=== PATIENT | female | born 1995 | race Caucasian/White ===

== ENCOUNTER 2018-07-30 18:44 | Emergency (ER) | payer OTHER ==
[2018-07-30 19:29] VITALS: BP 142/81; PULSE 77; TEMP 98.3; BMI 29.8
--- NOTE | 2018-07-30 19:30 | PDOC ---
Rapid Medical Evaluation Chief Complaint: Wound Time Seen by Provider: 07/30/18 19:26 Medical Evaluation: Allergies Allergy/AdvReac Type Severity Reaction Status Date / Time No Known Allergies Allergy Verified 03/09/14 20:12 07/30/18 19:26 Patient c/o: right leg bump since this am, no fever, had varicella vaccine Patient on brief exam: noted cluster of small vesicles to lower inner thigh Patient ordered for: none The patient will proceed to the ED Discharge Disposition - Diagnosis Rash - Referrals - Patient Instructions - Post Discharge Activity
--- NOTE | 2018-07-30 19:55 | PDOC ---
History of Present Illness - General Chief Complaint: Wound Stated Complaint: Abscess Boil ON RIGHT LEG Time Seen by Provider: 07/30/18 19:26 - History of Present Illness Initial Comments: 07/30/18 19:52 23-year-old female without comorbidities presents for evaluation of a painful area on the right inner thigh times one day no systemic symptoms Past History - Past Medical History Allergies/Adverse Reactions: Allergies Allergy/AdvReac Type Severity Reaction Status Date / Time No Known Allergies Allergy Verified 03/09/14 20:12 Home Medications: Ambulatory Orders No Home Medications 0 dose .ROUTE UTDICT 03/09/14 Asthma: Yes (ASTHMA) - Immunization History Immunization Up to Date: Yes - Suicide/Smoking/Psychosocial Hx Smoking Status: No Smoking History: Never smoked Have you smoked in the past 12 months: No Number of Cigarettes Smoked Daily: 0 Information on smoking cessation initiated: No Hx Alcohol Use: No Drug/Substance Use Hx: No Substance Use Type: None Review of Systems - Review of Systems Integumentary: Yes: Rash *Physical Exam - Vital Signs Last Vital Signs Temp Pulse Resp BP Pulse Ox 98.3 F 77 16 142/81 100 07/30/18 19:25 07/30/18 19:25 07/30/18 19:25 07/30/18 19:25 07/30/18 19:25 - Physical Exam Comments: 07/30/18 19:53 HEAD: NC/AT EYES: Conjuntiva clear NEUROLOGIC: No gross sensory or motor deficits, NVID SKIN: Normal color and temperature there is a vesicular area with closed vesicles about 2 cm circumferential on the right inner thigh Moderate Sedation - Procedure Monitoring Vital Signs: Procedure Monitoring Vital Signs Temperature 98.3 F 07/30/18 19:25 Pulse Rate 77 07/30/18 19:25 Respiratory Rate 16 07/30/18 19:25 Blood Pressure 142/81 07/30/18 19:25 O2 Sat by Pulse Oximetry (%) 100 07/30/18 19:25 *DC/Admit/Observation/Transfer Diagnosis at time of Disposition: Rash, Herpetic venancio - Discharge Dispostion Disposition: HOME Condition at time of disposition: Stable Decision to Admit order: No - Referrals Referrals: Kylah Hernandez [Primary Care Provider] - - Patient Instructions Additional Instructions: He may take Tylenol and Motrin as directed for pain. Topical Abreva cream 3 times a day will help the area. Please wash the area with soap and water and leave it open to air otherwise. Return to the emergency room should symptoms worsen or go unresolved and follow-up with your primary care physician one to 2 days for further evaluation and treatment options - Post Discharge Activity
== END 2018-07-30 19:57 | disposition home or self-care (01) ==
LOC: JERFT 18:44
DX: B00.89 Other herpesviral infection (principal); Z87.09 Personal history of other diseases of the respiratory system
CPT/HCPCS: 99281-25

== ENCOUNTER 2018-09-04 13:33 | Inpatient (IN) | payer OTHER ==
[2018-09-04] MEDS ORDERED: SODIUM CHLORIDE 1,000 ML IV STA (14:22)
[2018-09-04] MEDS ORDERED: KETOROLAC TROMETHAMINE 30 MG/1 ML VIAL IVPUSH ONE (14:22)
[2018-09-04] MEDS ORDERED: TAMSULOSIN HCL 0.4 MG CAP PO ONE (14:41)
[2018-09-04] MEDS ORDERED: METOCLOPRAMIDE HCL INJECTION 10 MG/2 ML VIAL IVPB ONE (14:41)
[2018-09-04 14:44] LABS: BASO % 0.5 % (0-2.0); EOS % 0.8 % (0-4.5); HEMATOCRIT 36.7 % (32.4-45.2); HEMOGLOBIN 11.6 GM/dL (10.7-15.3); LYMPH % 8.6 % (8-40); MCH 29.1 pg (25.7-33.7); MCHC 31.7 g/dl (32.0-36.0); MEAN PLT VOLUME 9.8 fl (7.5-11.1); MONO % 3.7 % (3.8-10.2); NEUT % 86.4 % (42.8-82.8); PLATELET COUNT 354 K/MM3 (134-434); RBC 3.99 M/mm3 (3.60-5.2); RDW 13.5 % (11.6-15.6); WHITE BLOOD COUNT 13.7 K/mm3 (4.0-10.0)
[2018-09-04 15:22] LABS: ALBUMIN 4.1 g/dl (3.4-5.0); ALK PHOS 73 U/L (45-117); ANION GAP 7 MMOL/L (8-16); BILIRUBIN,TOTAL 0.3 mg/dL (0.2-1); BLOOD UREA NITROGEN 11 mg/dL (7-18); CALCIUM 9.2 mg/dL (8.5-10.1); CHLORIDE 104 mmol/L (98-107); CO2 26 mmol/L (21-32); GLUCOSE,RANDOM 120 mg/dL (74-106); SGOT/AST 24 U/L (15-37); SGPT/ALT 23 U/L (13-61); SODIUM 137 mmol/L (136-145); TOT PROT 8.4 g/dl (6.4-8.2)
[2018-09-04 16:59] LABS: URINE APPEARANCE CLEAR; URINE BILIRUBIN NEGATIVE (<2.0 mg/dL); URINE COLOR LTYELLOW; URINE GLUCOSE (UA) NEGATIVE (NEGATIVE); URINE KETONE NEGATIVE (NEGATIVE); URINE LEUK ESTERASE NEGATIVE (NEGATIVE); URINE NITRITE NEGATIVE (NEGATIVE); URINE PROTEIN NEGATIVE (NEGATIVE); URINE UROBILINOGEN NEGATIVE mg/dL (0.2-1.0)
[2018-09-04 17:00] LABS: HCG,QUALITATIVE URINE Negative
[2018-09-04 17:11] LABS: EPI CELLS FEW /HPF (FEW); URINE MUCUS RARE
--- NOTE | 2018-09-04 17:18 | PDOC ---
History of Present Illness - General Chief Complaint: Pain, Acute Stated Complaint: PAIN Time Seen by Provider: 09/04/18 14:20 History Source: Patient - History of Present Illness Timing/Duration: reports: constant Quality: reports: severe Past History - Past Medical History Allergies/Adverse Reactions: Allergies Allergy/AdvReac Type Severity Reaction Status Date / Time No Known Allergies Allergy Verified 03/09/14 20:12 Home Medications: Ambulatory Orders No Home Medications 0 dose .ROUTE UTDICT 03/09/14 Asthma: Yes (ASTHMA) COPD: No - Immunization History Immunization Up to Date: Yes - Suicide/Smoking/Psychosocial Hx Smoking Status: No Smoking History: Never smoked Have you smoked in the past 12 months: No Number of Cigarettes Smoked Daily: 0 Information on smoking cessation initiated: No Hx Alcohol Use: No Drug/Substance Use Hx: No Substance Use Type: None Review of Systems - Review of Systems Constitutional: No: Chills, Fever ABD/GI: Yes: Nausea, Vomiting : Yes: Flank Pain. No: Burning, Dysuria, Discharge, Hematuria *Physical Exam - Vital Signs Last Vital Signs Temp Pulse Resp BP Pulse Ox 97.9 F 104 H 18 121/62 99 09/04/18 16:29 09/04/18 16:29 09/04/18 16:29 09/04/18 16:29 09/04/18 16:29 - Physical Exam General Appearance: Yes: Appropriately Dressed, Severe Distress HEENT: positive: Normal Voice Neck: positive: Supple Gastrointestinal/Abdominal: positive: Tender (to R flank), Soft Musculoskeletal: positive: Normal Inspection. negative: CVA Tenderness Integumentary: positive: Dry, Warm Neurologic: positive: Fully Oriented, Alert, Normal Mood/Affect Moderate Sedation - Procedure Monitoring Vital Signs: Procedure Monitoring Vital Signs Temperature 97.9 F 09/04/18 16:29 Pulse Rate 104 H 09/04/18 16:29 Respiratory Rate 18 09/04/18 16:29 Blood Pressure 121/62 09/04/18 16:29 O2 Sat by Pulse Oximetry (%) 99 09/04/18 16:29 ED Treatment Course - LABORATORY CBC & Chemistry Diagram: 09/04/18 14:20 09/04/18 14:20 - ADDITIONAL ORDERS Additional order review: Laboratory Results 09/04/18 09/04/18 09/04/18 16:00 14:25 14:20 Sodium 137 Potassium 4.0 Chloride 104 Carbon Dioxide 26 Anion Gap 7 L BUN 11 Creatinine 1.0 Creat Clearance w eGFR > 60 Random Glucose 120 H Calcium 9.2 Total Bilirubin 0.3 AST 24 ALT 23 Alkaline Phosphatase 73 Total Protein 8.4 H Albumin 4.1 Beta HCG, Quant < 1.0 Urine Color Ltyellow Urine Appearance Clear Urine pH 7.0 Ur Specific [place] 1.015 Urine Protein Negative Urine Glucose (UA) Negative Urine Ketones Negative Urine Blood 1+ H Urine Nitrite Negative Urine Bilirubin Negative Urine Urobilinogen Negative Ur Leukocyte Esterase Negative Urine WBC (Auto) 2 Urine RBC (Auto) 11 Ur Epithelial Cells Few Urine Mucus Rare Urine HCG, Qual Negative Cancelled 09/04/18 14:20 RBC 3.99 MCV 92.0 MCHC 31.7 L RDW 13.5 MPV 9.8 Neutrophils % 86.4 H Lymphocytes % 8.6 Monocytes % 3.7 L Eosinophils % 0.8 Basophils % 0.5 - RADIOLOGY Radiology Studies Ordered: Category Date Time Status ABDOMEN & PELVIS CT W/O CONTR [CT] Stat CT Scan 09/04/18 14:41 Ordered - Medications Given in the ED: ED Medications Discontinued Medications Generic Name Dose Route Start Last Admin Trade Name Freq PRN Reason Stop Dose Admin Sodium Chloride 1,000 mls @ 1,000 mls/hr 09/04/18 14:22 09/04/18 14:41 Normal Saline - IV 09/04/18 15:21 1,000 mls/hr ASDIR STA Administration Ketorolac Tromethamine 30 mg 09/04/18 14:22 09/04/18 14:41 Toradol Injection - IVPUSH 09/04/18 14:23 30 mg ONCE ONE Administration Metoclopramide HCl 10 mg 09/04/18 14:41 09/04/18 14:57 Reglan Injection - IVPB 09/04/18 14:42 10 mg ONCE ONE Administration Tamsulosin HCl 0.4 mg 09/04/18 14:41 09/04/18 14:57 Flomax - PO 09/04/18 14:42 0.4 mg ONCE ONE Administration Medical Decision Making - Medical Decision Making 09/04/18 17:14 23 yo F, h/o renal stones, here w/ severe R flank pain w/ n/v, similar to prior stone. Pt states she was admitted for pain control several weeks ago at [facility] after pt p/w her first episode of renal colic. States she was seen by and told to make appt but has not yet done so per pt. Denies dysuria, hematuria, f/c. Of note, pt s/p spon AB ~1 month ago. No vag bleed currently See exam Renal colic S/p recent admission for same at [facility] and told to f/u with , no surg in past -pain control -IVF -labs -CT 09/04/18 18:13 CT w/ 0.5 x 0.3 cm stone to R UPJ w/ mod hydro, additional R non-ob stones seen. WBC ~13, UA w/o e/o infxn. Pt reports that R flank pain coming back now. Also seen on CT was ~4cm adnexal structure. Per pt, was told she had a R ovarian cyst on recent CT at OSH. Does have sig pain to R pelvic area. Will get US now. Per d/w Dr Chapman, get renal c/s for possible stent placement and m/ l admit pt 09/04/18 18:56 Case d/w Dr Trujillo of who will see pt as c/s inhouse in the am. pt signed out to EUSEBIO Quigley pending US an admission 09/04/18 18:57 *DC/Admit/Observation/Transfer Diagnosis at time of Disposition: Renal colic on right side - Referrals - Patient Instructions - Post Discharge Activity
[2018-09-04] MEDS ORDERED: morphine CARPU-JECT 4 MG/1 ML DISP.SYRIN IVPUSH ONE (18:19)
--- NOTE | 2018-09-04 19:45 | PDOC ---
*Physical Exam - Vital Signs Last Vital Signs Temp Pulse Resp BP Pulse Ox 98.2 F 76 16 101/51 L 100 09/04/18 18:57 09/04/18 18:57 09/04/18 18:57 09/04/18 18:57 09/04/18 18:57 ED Treatment Course - LABORATORY CBC & Chemistry Diagram: 09/04/18 14:20 09/04/18 14:20 - ADDITIONAL ORDERS Additional order review: Laboratory Results 09/04/18 09/04/18 09/04/18 16:00 14:25 14:20 Sodium 137 Potassium 4.0 Chloride 104 Carbon Dioxide 26 Anion Gap 7 L BUN 11 Creatinine 1.0 Creat Clearance w eGFR > 60 Random Glucose 120 H Calcium 9.2 Total Bilirubin 0.3 AST 24 ALT 23 Alkaline Phosphatase 73 Total Protein 8.4 H Albumin 4.1 Beta HCG, Quant < 1.0 Urine Color Ltyellow Urine Appearance Clear Urine pH 7.0 Ur Specific [place] 1.015 Urine Protein Negative Urine Glucose (UA) Negative Urine Ketones Negative Urine Blood 1+ H Urine Nitrite Negative Urine Bilirubin Negative Urine Urobilinogen Negative Ur Leukocyte Esterase Negative Urine WBC (Auto) 2 Urine RBC (Auto) 11 Ur Epithelial Cells Few Urine Mucus Rare Urine HCG, Qual Negative Cancelled 09/04/18 14:20 RBC 3.99 MCV 92.0 MCHC 31.7 L RDW 13.5 MPV 9.8 Neutrophils % 86.4 H Lymphocytes % 8.6 Monocytes % 3.7 L Eosinophils % 0.8 Basophils % 0.5 - Medications Given in the ED: ED Medications Discontinued Medications Generic Name Dose Route Start Last Admin Trade Name Myles PRN Reason Stop Dose Admin Sodium Chloride 1,000 mls @ 1,000 mls/hr 09/04/18 14:22 09/04/18 14:41 Normal Saline - IV 09/04/18 15:21 1,000 mls/hr ASDIR STA Administration Ketorolac Tromethamine 30 mg 09/04/18 14:22 09/04/18 14:41 Toradol Injection - IVPUSH 09/04/18 14:23 30 mg ONCE ONE Administration Metoclopramide HCl 10 mg 09/04/18 14:41 09/04/18 14:57 Reglan Injection - IVPB 09/04/18 14:42 10 mg ONCE ONE Administration Morphine Sulfate 2 mg 09/04/18 18:19 09/04/18 18:47 Morphine Injection - IVPUSH 09/04/18 18:20 2 mg ONCE ONE Administration Tamsulosin HCl 0.4 mg 09/04/18 14:41 09/04/18 14:57 Flomax - PO 09/04/18 14:42 0.4 mg ONCE ONE Administration Medical Decision Making - Medical Decision Making Patient signed out to me by EUSEBIO Moreland. Patient currently resting comfortably in NAD. Denies any new complaints Patient to be admitted for further pain control Microblog sent; pending callback 09/04/18 19:43 US still pending Patient admitted under Dr. Richard 09/04/18 20:35 *DC/Admit/Observation/Transfer Diagnosis at time of Disposition: Renal colic on right side, Kidney stone - Discharge Dispostion Decision to Admit order: Yes - Referrals - Patient Instructions - Post Discharge Activity
--- NOTE | 2018-09-04 19:54 | PN ---
Teaching Attending Note Name of Resident: Delmar Coffman ATTENDING PHYSICIAN STATEMENT I saw and evaluated the patient. I reviewed the resident's note and discussed the case with the resident. I agree with the resident's findings and plan as documented. SUBJECTIVE: Patient is a 23 year old woman with PMH of kidney renal stones who presents with severe R flank pain, nausea and vomiting. She was admitted for pain control several weeks ago at [facility] after patient presented with her first episode of renal colic. States she was seen by and told to make appt but has not yet done so. Denies dysuria, hematuria or chills. Had a spontaneous about 1 month ago. No vaginal bleeding currently. OBJECTIVE: Alert Vital Signs Period Temp Pulse Resp BP Sys/Padgett Pulse Ox Last 24 Hr 97.9 F-98.2 F 76-104 16-18 101-130/51-84 99-100 HEENT: No Jaundice, eye redness or discharge, PERRLA, EOMI. Normocephalic, atraumatic. External ears are normal and hearing is grossly intact. No nasal discharge. Neck: Supple, nontender. No palpable adenopathy or thyromegaly. No JVD Chest: Good effort. Clear to auscultation and percussion. Heart: Regular. No S3, rub or murmur Abdomen: Not distended, soft, right CVAT and no HSM. No rebound or guarding. Normoactive bowel sounds. Ext: Peripheral pulses intact. No leg edema. Skin: Warm and dry. No petechiae, rash or ecchymosis. Neuro: Alert. Oriented x3. CN 2-12 grossly intact. Sensation grossly intact in all four extremities and DTR are symmetric. Home Medications Medication Instructions Recorded No Home Medications 0 dose .ROUTE UTDICT 03/09/14 Abnormal Lab Results 09/04/18 09/04/18 09/04/18 14:20 14:20 16:00 WBC 13.7 H MCHC 31.7 L Absolute Neuts (auto) 11.8 H Neutrophils % 86.4 H Monocytes % 3.7 L Anion Gap 7 L Random Glucose 120 H Total Protein 8.4 H Urine Blood 1+ H ASSESSMENT AND PLAN: 1. Kidney stone - CT shows right UPJ stone and moderate right hydronephrosis. Getting IV NS, toradol, morphine and flomax. Will strain urine and keep her NPO after midnight for possible urologic procedure tomorrow. Right ovarian cyst noted on CT - will refer to outpatient SUPERVISOR BREW HOUSE for continued monitoring. Upon discharge refer to nephrology for work up to search for stone disease risk factor. 2. Obesity - Will provide patient all the necessary assistance, counseling and positive reinforcement to facilitate weight loss. Consult dialysis patient care technician. 3. DVT prophylaxis - Lovenox 40 mg SQ q 24 hours. 4. Advance directives - Full code
[2018-09-04] MEDS ORDERED: KETOROLAC TROMETHAMINE 15 MG/ML VIAL IVPUSH PRN (20:01)
[2018-09-04] MEDS ORDERED: MORPHINE SULFATE 2 MG/ML VIAL IVPUSH PRN (20:01)
[2018-09-04] MEDS ORDERED: ACETAMINOPHEN 325 MG TABLET (FP) PO PRN (20:06)
[2018-09-04] MEDS ORDERED: SODIUM CHLORIDE 1,000 ML IV SCH (20:15)
--- NOTE | 2018-09-04 20:46 | HP ---
CHIEF COMPLAINT: R flank pain PCP: None HISTORY OF PRESENT ILLNESS: 23yo F with only history of iron deficiency anemia who presents today with worsening R flank pain from this morning. Pt reports developing flank pain on when she went to [facility]. She reports they diagnosed her with R-sided nephrolithiasis and she was discharged with 5 days worth of antibiotics for prophylaxis in hopes of passing her stone. Pt was discharged on 08/26/2018 and has not had a problem until this morning. She reports waking up and feeling colicky flank pain which has progressively worsened. She endorses nausea without any vomiting. Denies fever/chills, abdominal pain, shortness of breath, chest pain, palpitations, dysuria, polyuria, hematuria. Pt denies any vitamin C use, excessive Tums use, family history of kidney stones , and prior history of kidney stones. Recent Travel: Denies PAST MEDICAL HISTORY: Iron deficiency anemia (iron supplementation daily) PAST SURGICAL HISTORY: None LMP: 08/22/2018; regular for about 5 days Social History: Smoking: None Alcohol: Occasional Drugs: None Lives at home with family (mother and sister) Family History: No history of nephrolithiasis Allergies No Known Allergies Allergy (Verified 03/09/14 20:12) HOME MEDICATIONS: Home Medications Medication Instructions Recorded No Home Medications 0 dose .ROUTE UTDICT 03/09/14 REVIEW OF SYSTEMS As per HPI PHYSICAL EXAMINATION Vital Signs - 24 hr 09/04/18 09/04/18 09/04/18 13:44 16:29 18:57 Temperature 98.0 F 97.9 F 98.2 F Pulse Rate 92 H Pulse Rate [ 104 H 76 Left Apical] Respiratory 18 18 16 Rate Blood Pressure 130/84 Blood Pressure 121/62 101/51 L [Left Arm] O2 Sat by Pulse 100 99 100 Oximetry (%) GENERAL: NAD, awake, alert, and fully oriented, sitting in chair. HEENT: NC/AT, TATYANA, MMM LUNGS: CTA bilaterally. No wheezes, and no crackles. No accessory muscle use. HEART: RRR, normal S1 and S2 without murmur ABDOMEN: Soft, NT/ND, normoactive bowel sounds, no guarding, no rebound. No suprapubic tenderness. MUSCULOSKELETAL: R CVA tenderness noted. No bony abnormalities EXTREMITIES: 2+ distal pulses throughout, warm, well-perfused. No peripheral edema. PSYCHIATRIC: Cooperative. Good eye contact. Appropriate mood and affect. SKIN: Warm, dry, no rashes or lesions noted, normal capillary refill. Laboratory Results - last 24 hr 09/04/18 09/04/18 09/04/18 14:20 14:20 14:25 WBC 13.7 H RBC 3.99 Hgb 11.6 Hct 36.7 MCV 92.0 MCH 29.1 MCHC 31.7 L RDW 13.5 Plt Count 354 MPV 9.8 Absolute Neuts (auto) 11.8 H Neutrophils % 86.4 H Lymphocytes % 8.6 Monocytes % 3.7 L Eosinophils % 0.8 Basophils % 0.5 Nucleated RBC % 0 Sodium 137 Potassium 4.0 Chloride 104 Carbon Dioxide 26 Anion Gap 7 L BUN 11 Creatinine 1.0 Creat Clearance w eGFR > 60 Random Glucose 120 H Calcium 9.2 Total Bilirubin 0.3 AST 24 ALT 23 Alkaline Phosphatase 73 Total Protein 8.4 H Albumin 4.1 Beta HCG, Quant < 1.0 Urine Color Urine Appearance Urine pH Ur Specific [place] Urine Protein Urine Glucose (UA) Urine Ketones Urine Blood Urine Nitrite Urine Bilirubin Urine Urobilinogen Ur Leukocyte Esterase Urine WBC (Auto) Urine RBC (Auto) Ur Epithelial Cells Urine Mucus Urine HCG, Qual Cancelled 09/04/18 16:00 WBC RBC Hgb Hct MCV MCH MCHC RDW Plt Count MPV Absolute Neuts (auto) Neutrophils % Lymphocytes % Monocytes % Eosinophils % Basophils % Nucleated RBC % Sodium Potassium Chloride Carbon Dioxide Anion Gap BUN Creatinine Creat Clearance w eGFR Random Glucose Calcium Total Bilirubin AST ALT Alkaline Phosphatase Total Protein Albumin Beta HCG, Quant Urine Color Ltyellow Urine Appearance Clear Urine pH 7.0 Ur Specific [place] 1.015 Urine Protein Negative Urine Glucose (UA) Negative Urine Ketones Negative Urine Blood 1+ H Urine Nitrite Negative Urine Bilirubin Negative Urine Urobilinogen Negative Ur Leukocyte Esterase Negative Urine WBC (Auto) 2 Urine RBC (Auto) 11 Ur Epithelial Cells Few Urine Mucus Rare Urine HCG, Qual Negative ASSESSMENT/PLAN: Nephrolithiasis with hydronephrosis Ovarian Cyst Iron deficiency anemia -- consulted in ED: will see in AM --Continue Toradol and Morphine for pain control --Tylenol on board for fever and pain --Can be NPO after midnight in case of possible urological procedure --IVF @50cc/hr x1L --UA reviewed; due to stranding and previous antibiotic use at discharge from [facility] will order culture to ensure clearance --Recommend outpatient follow-up for ovarian cyst for further work-up by MAIN LINE STATION ENGINEER upon discharge Dispo: Obs M/s; consult pending Case to be discussed Delmar Coffman DO - IM PGY-2 Visit type - Emergency Visit Emergency Visit: Yes ED Registration Date: 09/04/18 Care time: The patient presented to the Emergency Department on the above date and was hospitalized for further evaluation of their emergent condition. - New Patient This patient is new to me today: Yes Date on this admission: 09/05/18 - Critical Care Critical Care patient: No
[2018-09-05] MEDS ORDERED: ONDANSETRON 4 MG/2 ML VIAL IVPUSH PRN ×2 (03:19→13:33)
[2018-09-05 03:45] VITALS: BMI 28.9
[2018-09-05 06:37] LABS: HEMATOCRIT 33.1 % (32.4-45.2); HEMOGLOBIN 10.8 GM/dL (10.7-15.3); MCH 29.7 pg (25.7-33.7); MCHC 32.7 g/dl (32.0-36.0); MEAN CELL VOLUME 91.1 fl (80-96); MEAN PLT VOLUME 9.5 fl (7.5-11.1); PLATELET COUNT 276 K/MM3 (134-434); RBC 3.64 M/mm3 (3.60-5.2); RDW 13.4 % (11.6-15.6); WHITE BLOOD COUNT 12.1 K/mm3 (4.0-10.0)
[2018-09-05 07:08] LABS: ANION GAP 6 MMOL/L (8-16); BLOOD UREA NITROGEN 9 mg/dL (7-18); CALCIUM 8.3 mg/dL (8.5-10.1); CHLORIDE 107 mmol/L (98-107); CO2 25 mmol/L (21-32); CREATININE 1.1 mg/dL (0.55-1.3); GLUCOSE,RANDOM 96 mg/dL (74-106); POTASSIUM 3.9 mmol/L (3.5-5.1); SODIUM 137 mmol/L (136-145)
[2018-09-05] MEDS ORDERED: CEFTRIAXONE 1 G/50 ML PREMIX 50 ML IVPB ONE (08:00)
[2018-09-05] MEDS ORDERED: CEFTRIAXONE 1 GM in DEXTROSE 5%-WATER - 50 ML IVPB ONE (08:01)
[2018-09-05] MEDS ORDERED: DEXTROSE 5%-WATER - 50 ML IVPB ONE (08:30)
[2018-09-05] MEDS ORDERED: cefTRIAXone SODIUM 1 GM VIAL ONE (08:30)
--- NOTE | 2018-09-05 09:32 | PN ---
Teaching Attending Note Name of Resident: Emy Coronado ATTENDING PHYSICIAN STATEMENT I saw and evaluated the patient. I reviewed the resident's note and discussed the case with the resident. I agree with the resident's findings and plan as documented. SUBJECTIVE: Patient is going to OR as per urologist OBJECTIVE: Vital Signs Temperature 98.3 F 09/05/18 06:00 Pulse Rate 97 H 09/05/18 06:00 Respiratory Rate 18 09/05/18 06:00 Blood Pressure 110/65 09/05/18 06:00 O2 Sat by Pulse Oximetry (%) 100 09/04/18 19:55 GENERAL: NAD, awake, alert, and fully oriented, sitting in chair. HEENT: NC/AT, TATYANA, MMM LUNGS: CTA bilaterally. No wheezes, and no crackles. No accessory muscle use. HEART: RRR, normal S1 and S2 without murmur ABDOMEN: Soft, NT/ND, normoactive bowel sounds, no guarding, no rebound. MUSCULOSKELETAL: R CVA tenderness noted. No bony abnormalities EXTREMITIES: 2+ distal pulses throughout, warm, well-perfused. No peripheral edema. PSYCHIATRIC: Cooperative. Good eye contact. Appropriate mood and affect. SKIN: Warm, dry, no rashes or lesions noted, normal capillary refill. CBCD WBC 12.1 K/mm3 (4.0-10.0) H 09/05/18 06:15 RBC 3.64 M/mm3 (3.60-5.2) 09/05/18 06:15 Hgb 10.8 GM/dL (10.7-15.3) 09/05/18 06:15 Hct 33.1 % (32.4-45.2) 09/05/18 06:15 MCV 91.1 fl (80-96) 09/05/18 06:15 MCHC 32.7 g/dl (32.0-36.0) 09/05/18 06:15 RDW 13.4 % (11.6-15.6) 09/05/18 06:15 Plt Count 276 K/MM3 (134-434) D 09/05/18 06:15 MPV 9.5 fl (7.5-11.1) 09/05/18 06:15 CMP Sodium 137 mmol/L (136-145) 09/05/18 06:15 Potassium 3.9 mmol/L (3.5-5.1) 09/05/18 06:15 Chloride 107 mmol/L (98-107) 09/05/18 06:15 Carbon Dioxide 25 mmol/L (21-32) 09/05/18 06:15 Anion Gap 6 MMOL/L (8-16) L 09/05/18 06:15 BUN 9 mg/dL (7-18) 09/05/18 06:15 Creatinine 1.1 mg/dL (0.55-1.3) 09/05/18 06:15 Creat Clearance w eGFR > 60 (>60) 09/05/18 06:15 Random Glucose 96 mg/dL (74-106) 09/05/18 06:15 Calcium 8.3 mg/dL (8.5-10.1) L 09/05/18 06:15 Total Bilirubin 0.3 mg/dL (0.2-1) 09/04/18 14:20 AST 24 U/L (15-37) 09/04/18 14:20 ALT 23 U/L (13-61) 09/04/18 14:20 Alkaline Phosphatase 73 U/L (45-117) 09/04/18 14:20 Total Protein 8.4 g/dl (6.4-8.2) H 09/04/18 14:20 Albumin 4.1 g/dl (3.4-5.0) 09/04/18 14:20 Current Medications Generic Name Dose Route Start Last Admin Trade Name Freq PRN Reason Stop Dose Admin Acetaminophen 650 mg 09/04/18 20:06 Tylenol - PO Q4H PRN FEVER Sodium Chloride 1,000 mls @ 50 mls/hr 09/04/18 20:15 09/04/18 21:35 Normal Saline - IV 09/05/18 16:14 50 mls/hr ASDIR HIMANSHU Administration Ketorolac Tromethamine 15 mg 09/04/18 20:01 Toradol Injection - IVPUSH 09/09/18 20:00 Q6H PRN PAIN LEVEL 4 - 6 Morphine Sulfate 1 mg 09/04/18 20:01 09/05/18 01:41 Morphine Sulfate IVPUSH 1 mg Q4H PRN Administration PAIN LEVEL 7 - 10 Ondansetron HCl 4 mg 09/05/18 03:19 09/05/18 03:25 Zofran Injection IVPUSH 4 mg Q6H PRN Administration NAUSEA AND/OR VOMITING Home Medications Medication Instructions Recorded No Home Medications 0 dose .ROUTE UTDICT 03/09/14 CT shows right UPJ stone and moderate right hydronephrosis, Right ovarian cyst ASSESSMENT AND PLAN: # Kidney stone with moderate right hydronephrosis: Getting IV NS, toradol, morphine and flomax. Will strain urine and keep her NPO after midnight for possible urologic procedure tomorrow. # Right ovarian cyst on CT: will refer to outpatient SERVICE WRITER for continued monitoring. # Obesity - Will provide patient all the necessary assistance, counseling and positive reinforcement to facilitate weight loss. Consult roofer helper vinyl coating. DVT prophylaxis - Lovenox 40 mg SQ q 24 hours. Advance directives - Full code
--- NOTE | 2018-09-05 12:39 | CON.GU ---
Consult - History of Present Illness History of Present Illness: 23 yo female with one week h/o rt renal colic secondary to 5 mm RPU stone, was in [facility] last week for same and treated with IVF hydration and analgesics. Now admitted with persistant colic. No prior h/o stone disease - Alcohol/Substance Use Hx Alcohol Use: No - Smoking History Smoking history: Never smoked Have you smoked in the past 12 months: No Aproximately how many cigarettes per day: 0 Home Medications - Allergies Allergies/Adverse Reactions: Allergies Allergy/AdvReac Type Severity Reaction Status Date / Time No Known Allergies Allergy Verified 03/09/14 20:12 - Home Medications Home Medications: Ambulatory Orders No Home Medications 0 dose .ROUTE UTDICT 03/09/14 Review of Systems - Review of Systems Genitourinary: reports: Flank Pain Physical Exam- Vital Signs: Vital Signs Temperature 98.1 F 09/05/18 10:00 Pulse Rate 84 09/05/18 10:00 Respiratory Rate 18 09/05/18 10:00 Blood Pressure 112/60 09/05/18 10:00 O2 Sat by Pulse Oximetry (%) 99 09/05/18 09:00 Renal/: Yes: Hematuria Labs: CBC, BMP 09/05/18 06:15 09/05/18 06:15 Imaging - Results Cat Scan: Report Reviewed Problem List - Problems (1) Renal colic on right side Code(s): N23 - UNSPECIFIED RENAL COLIC Assessment/Plan plan for cysto/stent placement since failed medical management
--- NOTE | 2018-09-05 12:39 | OP ---
Operative Note - Note: Operative Date: 09/05/18 Pre-Operative Diagnosis: RPU stone Operation: cysto/rt stent placement Post-Operative Diagnosis: Same as Pre-op Surgeon: Delmar Trujillo Anesthesia: General Operative Report Dictated: Yes
--- NOTE | 2018-09-05 13:22 | OP ---
DATE OF OPERATION: 09/05/2018 PREOPERATIVE DIAGNOSIS: Obstructing right proximal ureteral stone. POSTOPERATIVE DIAGNOSIS: Obstructing right proximal ureteral stone. PROCEDURE: Cystoscopy, retrograde pyelogram, ureteral stent placement. SURGEON: Hoa Redd MD INDICATION: The patient is a 23-year-old female who has had a greater than 1-week history of right renal colic secondary to a 5-mm stone in the right proximal ureter. She was at different hospital earlier last week for which she received IV fluid hydration and analgesics; however, the pain persists and she is admitted to this hospital for persistent colic. CT scan again shows a 5-mm stone in the proximal right ureter. Since the patient failed medical management, we recommended that she be taken to the OR for stent placement. She is in agreement with this. DESCRIPTION OF PROCEDURE: After informed consent was obtained, the patient was taken to the OR and placed supine on the table. After cardiac monitoring was administered, general anesthesia was established. She was prepped and draped in the dorsal lithotomy position. The 22-sheath cystoscope was inserted without difficulty and the bladder was visualized. No tumors or stones were noted in the bladder. Attention was turned to the right ureteral orifice. This was intubated with a ureteral catheter. Contrast was injected for retrograde pyelogram. There was hydronephrosis, though a radiopaque stone was not visualized, being likely a radiolucent stone. Guidewire was advanced into the right hemipelvis and over the guidewire a 6-Tajik 24-cm double-tip pigtail stent was then advanced in a monorail fashion. Fluoroscopy confirmed the stent to be in good position. Patient was then awoken from anesthesia and transferred to the recovery room in stable condition. There were no complications. ESTIMATED BLOOD LOSS: Zero. HOA REDD M.D. [id number]
[2018-09-05] MEDS ORDERED: ACETAMINOPHEN 325 MG TABLET (FP) PO PRN (13:33)
[2018-09-05] MEDS ORDERED: SODIUM CHLORIDE 1,000 ML IV SCH (13:33)
[2018-09-05] MEDS ORDERED: MORPHINE SULFATE 2 MG/ML VIAL IVPUSH PRN (13:33)
[2018-09-05] MEDS ORDERED: KETOROLAC TROMETHAMINE 15 MG/ML VIAL IVPUSH PRN (13:33)
--- NOTE | 2018-09-05 16:52 | PN ---
Physical Exam: SUBJECTIVE: Patient seen and examined at bedside. No acute events overnight. Denies f/c, n/v, chest pain, sob, abd pain, urinary/bowel symptoms. OBJECTIVE: Vital Signs Temperature 98.1 F 09/05/18 14:15 Pulse Rate 80 09/05/18 14:15 Respiratory Rate 18 09/05/18 14:15 Blood Pressure 120/70 09/05/18 14:15 O2 Sat by Pulse Oximetry (%) 99 09/05/18 14:15 GENERAL: NAD, awake, alert, and fully oriented. Comfortable. HEENT: NC/AT, TATYANA, MMM LUNGS: CTA bilaterally. No wheezes, and no crackles. No accessory muscle use. HEART: RRR, normal S1 and S2 without murmur ABDOMEN: Soft,TTP RLQ. ND, normoactive bowel sounds, no guarding, no rebound. MUSCULOSKELETAL: R CVA tenderness noted. No bony abnormalities EXTREMITIES: 2+ distal pulses throughout, warm, well-perfused. No peripheral edema. PSYCHIATRIC: Cooperative. Good eye contact. Appropriate mood and affect. SKIN: Warm, dry, no rashes or lesions noted, normal capillary refill. CBCD WBC 12.1 K/mm3 (4.0-10.0) H 09/05/18 06:15 RBC 3.64 M/mm3 (3.60-5.2) 09/05/18 06:15 Hgb 10.8 GM/dL (10.7-15.3) 09/05/18 06:15 Hct 33.1 % (32.4-45.2) 09/05/18 06:15 MCV 91.1 fl (80-96) 09/05/18 06:15 MCHC 32.7 g/dl (32.0-36.0) 09/05/18 06:15 RDW 13.4 % (11.6-15.6) 09/05/18 06:15 Plt Count 276 K/MM3 (134-434) D 09/05/18 06:15 MPV 9.5 fl (7.5-11.1) 09/05/18 06:15 CMP Sodium 137 mmol/L (136-145) 09/05/18 06:15 Potassium 3.9 mmol/L (3.5-5.1) 09/05/18 06:15 Chloride 107 mmol/L (98-107) 09/05/18 06:15 Carbon Dioxide 25 mmol/L (21-32) 09/05/18 06:15 Anion Gap 6 MMOL/L (8-16) L 09/05/18 06:15 BUN 9 mg/dL (7-18) 09/05/18 06:15 Creatinine 1.1 mg/dL (0.55-1.3) 09/05/18 06:15 Creat Clearance w eGFR > 60 (>60) 09/05/18 06:15 Calcium 8.3 mg/dL (8.5-10.1) L 09/05/18 06:15 Total Bilirubin 0.3 mg/dL (0.2-1) 09/04/18 14:20 AST 24 U/L (15-37) 09/04/18 14:20 ALT 23 U/L (13-61) 09/04/18 14:20 Alkaline Phosphatase 73 U/L (45-117) 09/04/18 14:20 Total Protein 8.4 g/dl (6.4-8.2) H 09/04/18 14:20 Albumin 4.1 g/dl (3.4-5.0) 09/04/18 14:20 Active Medications Acetaminophen (Tylenol -) 650 mg PO Q4H PRN PRN Reason: FEVER Ketorolac Tromethamine (Toradol Injection -) 15 mg IVPUSH Q6H PRN PRN Reason: PAIN LEVEL 4 - 6 Stop: 09/09/18 20:00 Morphine Sulfate (Morphine Sulfate) 1 mg IVPUSH Q4H PRN PRN Reason: PAIN LEVEL 7 - 10 Last Admin: 09/05/18 14:22 Dose: 1 mg Ondansetron HCl (Zofran Injection) 4 mg IVPUSH Q6H PRN PRN Reason: NAUSEA AND/OR VOMITING IMAGING: * CTAP: 0.5 x 0.3 cm R ureteral calculus seen at level of upper pelvis with mod hydronephrosis. Several nonobstructing 0.1 cm R renal calculi are noted. Non- specific 4.7 x 4.3 cm R posterior adnexal cystic structure is seen. * Transvaginal U/S: 5.1 x 3.9 x 2.7 cm R ovarian cyst. 1.7 cm L ovarian cyst/ follicle is seen. No doppler evidence of ovarian torsion. 70% sensitivity. CONSULT: Uro- Dr. Rendon ASSESSMENT/PLAN: 23F w/ pmhx of ovarian cyst, [place] presents with R flank pain found to have nephrolithiasis w/ hydronephrosis. #Nephrolithiasis with hydronephrosis -s/p cystoscopy, stent placement. tolerated procedure. -UCx pending -Tylenol 650 mg Q4H prn for pain -Toradol 15 mg IVP Q6H -Morphine 1 mg IVP Q4H -Zofran 4 mg IVP Q6H for nausea #Ovarian Cyst -Recommend outpatient follow-up for ovarian cyst for further work-up by SPECIAL MACHINE OPERATOR upon discharge #Iron deficiency anemia; Hgb 12.1 -Stable, trend CBCs #Ppx -early ambulation -SCDs #FEN -no IVf -recheck lytes in AM -regular diet dispo -cont to monitor on inpt med-surg Visit type - Emergency Visit Emergency Visit: Yes ED Registration Date: 09/05/18 Care time: The patient presented to the Emergency Department on the above date and was hospitalized for further evaluation of their emergent condition. - New Patient This patient is new to me today: Yes Date on this admission: 09/05/18 - Critical Care Critical Care patient: No
[2018-09-06 07:23] LABS: HEMATOCRIT 32.5 % (32.4-45.2); HEMOGLOBIN 10.6 GM/dL (10.7-15.3); MCH 29.9 pg (25.7-33.7); MCHC 32.6 g/dl (32.0-36.0); MEAN CELL VOLUME 91.6 fl (80-96); MEAN PLT VOLUME 9.8 fl (7.5-11.1); PLATELET COUNT 299 K/MM3 (134-434); RBC 3.55 M/mm3 (3.60-5.2); RDW 13.3 % (11.6-15.6); WHITE BLOOD COUNT 6.9 K/mm3 (4.0-10.0)
[2018-09-06 07:46] LABS: ANION GAP 8 MMOL/L (8-16); BLOOD UREA NITROGEN 10 mg/dL (7-18); CALCIUM 8.3 mg/dL (8.5-10.1); CHLORIDE 105 mmol/L (98-107); CO2 25 mmol/L (21-32); CREATININE 0.9 mg/dL (0.55-1.3); GLUCOSE,RANDOM 85 mg/dL (74-106); POTASSIUM 3.7 mmol/L (3.5-5.1); SODIUM 137 mmol/L (136-145)
--- NOTE | 2018-09-06 11:05 | DS ---
Physical Exam: SUBJECTIVE: Patient seen and examined at bedside. No acute events overnight. OBJECTIVE: Vital Signs Temperature 98.0 F 09/06/18 10:00 Pulse Rate 80 09/06/18 10:00 Respiratory Rate 18 09/06/18 10:00 Blood Pressure 122/68 09/06/18 10:00 O2 Sat by Pulse Oximetry (%) 100 09/06/18 10:00 PHYSICAL EXAM GENERAL: NAD, awake, alert, and fully oriented. Comfortable. HEENT: NC/AT, TATYANA, MMM LUNGS: CTA bilaterally. No wheezes, and no crackles. No accessory muscle use. HEART: RRR, normal S1 and S2 without murmur ABDOMEN: Soft,TTP RLQ. ND, normoactive bowel sounds, no guarding, no rebound. MUSCULOSKELETAL: R CVA tenderness noted. No bony abnormalities EXTREMITIES: 2+ distal pulses throughout, warm, well-perfused. No peripheral edema. PSYCHIATRIC: Cooperative. Good eye contact. Appropriate mood and affect. SKIN: Warm, dry, no rashes or lesions noted, normal capillary refill. LABS Laboratory Results - last 24 hr 09/06/18 09/06/18 06:10 06:10 WBC 6.9 RBC 3.55 L Hgb 10.6 L Hct 32.5 MCV 91.6 MCH 29.9 MCHC 32.6 RDW 13.3 Plt Count 299 MPV 9.8 Sodium 137 Potassium 3.7 Chloride 105 Carbon Dioxide 25 Anion Gap 8 BUN 10 Creatinine 0.9 Creat Clearance w eGFR > 60 Random Glucose 85 Calcium 8.3 L HOSPITAL COURSE: Date of Admission:09/05/18 IMAGING: * CTAP: 0.5 x 0.3 cm R ureteral calculus seen at level of upper pelvis with mod hydronephrosis. Several nonobstructing 0.1 cm R renal calculi are noted. Non- specific 4.7 x 4.3 cm R posterior adnexal cystic structure is seen. * Transvaginal U/S: 5.1 x 3.9 x 2.7 cm R ovarian cyst. 1.7 cm L ovarian cyst/ follicle is seen. No doppler evidence of ovarian torsion. 70% sensitivity. 23F w/ pmhx of ovarian cyst, [place] presented with R flank pain found to have nephrolithiasis w/ hydronephrosis. Pt was evaluated by urology and subsequently underwent cystoscopy with stent placement due to previously failed medical management. Pt tolerated procedure well. No acute events during or post- procedure. Pt was discharged home with recommendation to follow up with her PCP. Also advised to follow up with urology on , Sep 12, 2018 for stent replacement. Pt given Keflex for antibiotic therapy with recommendation to take Tylenol for pain control. Date of Discharge: 09/06/18 Minutes to complete discharge: 40 Discharge Summary Reason For Visit: CALCULUS OF KIDNEY Condition: Improved - Instructions Diet, Activity, Other Instructions: You were seen in the hospital for complaints of worsening right flank pain. In the hospital, imaging studies showed you had several kidney stones as well as a right ovarian cyst. You were evaluated by a urologist and a right stent was placed to help treat your condition. Your symptoms improved during your hospital stay. You are being discharged home. MEDICAL RECOMMENDATIONS Please continue taking your home medications as directed. you were prescribed keflex 500mg 3x per day for 10 days please complete the course. CONSULT RECOMMENDATIONS Please follow up with your primary care physician within 1 week. Please follow up with your urologist, Dr. Trujillo on 09/12/2018 for further evaluation post-procedure. You can call to make an appointment. The address is: [address] [place] [address]. Please follow up with your OBGYN outpatient for further evaluation of your right ovarian cyst. If you do not currently have an OBGYN, you may make an appointment to see Dr. Palomo. If you experience worsening abdominal/flank pain, persistent nausea/vomiting, chest pain, shortness of breath, difficulty urinating, or abnormal urinary discharge, please proceed to your nearest emergency room immediately. Referrals: Delmar Trujillo MD [Staff Physician] - 1 Week Di Hernandez NP [Nurse Practitioner] - 1 Week Lauro Palomo MD [Staff Physician] - 1 Week Disposition: HOME - Home Medications Comprehensive Discharge Medication List: Ambulatory Orders No Home Medications 0 dose .ROUTE UTDICT 03/09/14 This patient is new to me today: Yes Date on this admission: 09/06/18 Emergency Visit: Yes ED Registration Date: 09/05/18 Care time: The patient presented to the Emergency Department on the above date and was hospitalized for further evaluation of their emergent condition. Critical Care patient: No - Discharge Referral Referred to [facility] No
--- NOTE | 2018-09-06 12:05 | PN ---
Progress Note (short form) - Note Progress Note: s/p stent yestrady feels better home today with keflex,analgesics plan for lithotripsy next week Problem List - Problems (1) Renal colic on right side Code(s): N23 - UNSPECIFIED RENAL COLIC
[2018-09-06 13:18] VITALS: BP 122/68; PULSE 80
[2018-09-06 14:13] VITALS: TEMP 98
--- NOTE | 2018-09-06 18:52 | PN ---
Teaching Attending Note Name of Resident: Emy Coronado ATTENDING PHYSICIAN STATEMENT I saw and evaluated the patient. I reviewed the resident's note and discussed the case with the resident. I agree with the resident's findings and plan as documented. SUBJECTIVE: Patient is comfortable with no acute distress. ready to go home. OBJECTIVE: Vital Signs Temperature 98.0 F 09/06/18 10:00 Pulse Rate 80 09/06/18 10:00 Respiratory Rate 18 09/06/18 10:00 Blood Pressure 122/68 09/06/18 10:00 O2 Sat by Pulse Oximetry (%) 100 09/06/18 10:00 GENERAL: NAD, awake, alert, and fully oriented, sitting in chair. HEENT: NC/AT, TATYANA, MMM LUNGS: CTA bilaterally. No wheezes, and no crackles. No accessory muscle use. HEART: RRR, normal S1 and S2 without murmur ABDOMEN: Soft, NT/ND, normoactive bowel sounds, no guarding, no rebound. MUSCULOSKELETAL: R CVA tenderness noted. No bony abnormalities EXTREMITIES: 2+ distal pulses throughout, warm, well-perfused. No peripheral edema. PSYCHIATRIC: Cooperative. Good eye contact. Appropriate mood and affect. SKIN: Warm, dry, no rashes or lesions noted, normal capillary refill. CBCD WBC 6.9 K/mm3 (4.0-10.0) 09/06/18 06:10 RBC 3.55 M/mm3 (3.60-5.2) L 09/06/18 06:10 Hgb 10.6 GM/dL (10.7-15.3) L 09/06/18 06:10 Hct 32.5 % (32.4-45.2) 09/06/18 06:10 MCV 91.6 fl (80-96) 09/06/18 06:10 MCHC 32.6 g/dl (32.0-36.0) 09/06/18 06:10 RDW 13.3 % (11.6-15.6) 09/06/18 06:10 Plt Count 299 K/MM3 (134-434) 09/06/18 06:10 MPV 9.8 fl (7.5-11.1) 09/06/18 06:10 CMP Sodium 137 mmol/L (136-145) 09/06/18 06:10 Potassium 3.7 mmol/L (3.5-5.1) 09/06/18 06:10 Chloride 105 mmol/L (98-107) 09/06/18 06:10 Carbon Dioxide 25 mmol/L (21-32) 09/06/18 06:10 Anion Gap 8 MMOL/L (8-16) 09/06/18 06:10 BUN 10 mg/dL (7-18) 09/06/18 06:10 Creatinine 0.9 mg/dL (0.55-1.3) 09/06/18 06:10 Creat Clearance w eGFR > 60 (>60) 09/06/18 06:10 Random Glucose 85 mg/dL (74-106) 09/06/18 06:10 Calcium 8.3 mg/dL (8.5-10.1) L 09/06/18 06:10 Total Bilirubin 0.3 mg/dL (0.2-1) 09/04/18 14:20 AST 24 U/L (15-37) 09/04/18 14:20 ALT 23 U/L (13-61) 09/04/18 14:20 Alkaline Phosphatase 73 U/L (45-117) 09/04/18 14:20 Total Protein 8.4 g/dl (6.4-8.2) H 09/04/18 14:20 Albumin 4.1 g/dl (3.4-5.0) 09/04/18 14:20 Home Medications Medication Instructions Recorded Cephalexin Monohydrate [Keflex -] 500 mg PO Q8H #30 capsule 09/06/18 CTAP: 0.5 x 0.3 cm R ureteral calculus seen at level of upper pelvis with mod hydronephrosis. Several non-obstructing 0.1cm R renal calculi are noted. Non- specific 4.7 x 4.3 cm R posterior adnexal cystic structure is seen. Transvaginal U/S: 5.1 x 3.9 x 2.7 cm R ovarian cyst. 1.7cm L ovarian cyst/ follicle is seen. No doppler evidence of ovarian torsion. 70% sensitivity. CT shows right UPJ stone and moderate right hydronephrosis, Right ovarian cyst. ASSESSMENT AND PLAN: Patient is a 23yo female with pmhx of ovarian cyst, [place] presented with Right flank pain found to have nephrolithiasis with hydronephrosis. # Kidney stone with moderate right hydronephrosis s/p stent placement by dr Dc ,will discharge the patient on oral antibiotic # Right ovarian cyst on CT: will refer to outpatient FOUR SLIDE OPERATOR # Obesity: Will provide patient all the necessary assistance, counseling and positive reinforcement to facilitate weight loss Discharge patient home Advance directives - Full code
== END 2018-09-06 14:14 | disposition home or self-care (01) | DRG 465 ==
LOC: JER 13:33 → JERBED 20:35 → J5S 09-05 01:30 → OBSVTOIN 09-05 10:01
PROVIDERS: ADMIT Internal Medicine; ATTEND Internal Medicine
PROC: 0T768DZ Dilation of Right Ureter with Intraluminal Device, Via Natural or Artificial Opening Endoscopic (ICD-10-PCS; principal; 2018-09-05 12:00)
PROC: BT1DZZZ Fluoroscopy of Right Kidney, Ureter and Bladder (ICD-10-PCS; 2018-09-05 12:00)
DX: N13.2 Hydronephrosis with renal and ureteral calculous obstruction (principal); D50.9 Iron deficiency anemia, unspecified; N83.201 Unspecified ovarian cyst, right side; E66.9 Obesity, unspecified; Z68.29 Body mass index [BMI] 29.0-29.9, adult
CPT/HCPCS: 36415; 74176-TC; 76000-TC-FY; 76830-TC; 80048; 80053; 81003; 81015; 83735; 84702; 84703; 85025; 85027; 87086; 94760; 99285-25; G0378; J7030

== ENCOUNTER 2018-09-12 08:56 | Day surgery (SDC) | payer OTHER ==
[2018-09-11 15:31] VITALS: BMI 29.2
[2018-09-12] MEDS ORDERED: LIDOCAINE HCL/PF 2% SDV 5ML VIAL ONE (08:58)
[2018-09-12] MEDS ORDERED: MIDAZOLAM HCL 2 MG/2 ML SINGLE DOSE VIAL ONE (10:10)
[2018-09-12] MEDS ORDERED: PROPOFOL 20 ML ONE ×2 (10:16→10:17)
[2018-09-12] MEDS ORDERED: ceFAZolin SODIUM 1 GM VIAL IVPB ONE (10:24)
[2018-09-12] MEDS ORDERED: IOHEXOL 300 MG/ML INFUS..BTL IV ONE (10:33)
[2018-09-12] MEDS ORDERED: KETOROLAC TROMETHAMINE 30 MG/1 ML VIAL ONE (10:43)
[2018-09-12] MEDS ORDERED: ceFAZolin SODIUM 1 GM VIAL ONE (10:43)
[2018-09-12] MEDS ORDERED: DEXAMETHASONE SOD PHOSPHATE 4 MG/1 ML VIAL ONE (10:44)
--- NOTE | 2018-09-12 10:52 | OP ---
Operative Note - Note: Operative Date: 09/12/18 Pre-Operative Diagnosis: rt ureteral stone Operation: cysto/ureteroscpy/stone amnipulation/stent replacement Findings: rt kidney stone Post-Operative Diagnosis: Same as Pre-op Surgeon: Delmar Trujillo Anesthesia: General Operative Report Dictated: Yes
[2018-09-12] MEDS ORDERED: oxyCODONE HCL 5 MG TABLET PO PRN ×2 (10:53→11:09)
[2018-09-12] MEDS ORDERED: DEXTROSE 5%-0.45% SALINE 1,000 ML IV SCH (11:00)
[2018-09-12] MEDS ORDERED: ONDANSETRON 4 MG/2 ML VIAL IVPUSH PRN (11:09)
[2018-09-12] MEDS ORDERED: PROMETHAZINE HCL 25 MG/1 ML VIAL IVPUSH PRN (11:09)
[2018-09-12 12:35] VITALS: TEMP 98
--- NOTE | 2018-09-12 13:01 | OP ---
DATE OF OPERATION: 09/12/2018 PREOPERATIVE DIAGNOSIS: Right ureteral stone. POSTOPERATIVE DIAGNOSIS: Right kidney stone. PROCEDURE: Cystoscopy, right ureteroscopy, stone manipulation, and stent replacement. SURGEON: Hoa Redd MD INDICATION: Patient is a 23-year-old female who had ureteral stent placement for an obstructing 5-mm right proximal ureteral stone a week ago and now taken to the OR for treatment of stone. Patient was taken to the OR, laid supine on the operating table. After cardiac monitoring administered and general anesthesia established, she was prepped and draped in dorsal lithotomy position. She was given 1 g of Ancef. The cystoscope was inserted into the urethra without difficulty and into the bladder. A stent was seen emanating from the right orifice; so, alongside the stent, a guidewire was advanced into the right renal pelvis. The stent was then removed, and a second guidewire was advanced through the stent and the stent removed in its entirety. With 2 wires in, now a flexible ureteroscope was advanced over one of the wires and one of the wires removed. Entire ureter was inspected. No stone was noted in the ureter. The kidney was then inspected and a small stone was seen in the lower pole kidney and this was irrigated out of the collecting system. It was dislodged with the tip of the scope since it was adherent to the urothelium overlying the kidney and then irrigated out of the system. No other stones noted. Ureteroscope was then removed, and a 7-Mohawk 24-cm double-pigtail stent was then advanced in the monorail fashion. Fluoroscopy confirmed the stent to be in good position. Patient then awoken from anesthesia and transferred to Recovery in stable condition. There were no complications. Estimated blood loss was minimal. HOA REDD M.D. [id number]
[2018-09-12 15:14] VITALS: BP 134/74; PULSE 75
--- NOTE | 2018-09-16 17:05 | PATH ---
Surgical Pathology Report Patient Name: DICK BROWN Med. Rec. #: [id number] /Age/Gender: 1995 (Age: 23) / F Account: [id number] Location: [facility] Taken: 09/12/2018 Received: 09/12/2018 Reported: 09/16/2018 Physicians: Delmar Trujillo M.D. Specimen(s) Received RIGHT URETERAL STENT Clinical History Right ureteral stone Final Diagnosis RIGHT URETERAL STENT, REMOVAL: CONSISTENT WITH URETERAL STENT. GROSS EXAMINATION ONLY. Electronically Signed Andre Everett M.D. Gross Description Received fresh labeled "right ureteral stent," is a 37 cm in length green, coiled portion of tubing, consistent with a ureteral stent. No soft tissue is present. No sections are submitted, gross only. DL/09/12/201809/12/2018
== END 2018-09-12 14:00 | disposition home or self-care (01) ==
LOC: JASU-SURG 08:56
PROVIDERS: ATTEND Urology
PROC: 0TU Urinary System, Supplement (ICD-10-PCS; principal; 2018-09-12 10:00)
PROC: 0T768DZ Dilation of Right Ureter with Intraluminal Device, Via Natural or Artificial Opening Endoscopic (ICD-10-PCS; 2018-09-12 10:00)
PROC: 0TP98DZ Removal of Intraluminal Device from Ureter, Via Natural or Artificial Opening Endoscopic (ICD-10-PCS; 2018-09-12 10:00)
DX: N20.0 Calculus of kidney (principal)
CPT/HCPCS: 76000-TC-FY; 84703; 88300-TC; 94760

== ENCOUNTER 2018-12-13 21:05 | Emergency (ER) | payer OTHER ==
[2018-12-13 21:14] VITALS: BP 126/79; TEMP 98.8; BMI 26.6
[2018-12-13] MEDS ORDERED: FAMOTIDINE 20 MG/50 ML IVPB 20 MG/50 ML MG IVPB ONE ×2 (21:31→22:34)
[2018-12-13] MEDS ORDERED: MAG HYDROX/AL HYDROX/SIMETH 30 ML UNIT-DOSE CUP PO ONE (21:31)
[2018-12-13] MEDS ORDERED: ONDANSETRON 4 MG/2 ML VIAL IVPUSH ONE (21:31)
[2018-12-13] MEDS ORDERED: SODIUM CHLORIDE 1,000 ML IV STA (21:31)
--- NOTE | 2018-12-13 21:31 | PDOC ---
History of Present Illness - General Chief Complaint: Nausea/Vomiting Stated Complaint: FEVER/VOMITTING/SHIVERING Time Seen by Provider: 12/13/18 21:30 Past History - Past Medical History Allergies/Adverse Reactions: Allergies Allergy/AdvReac Type Severity Reaction Status Date / Time No Known Allergies Allergy Verified 12/13/18 21:14 Home Medications: Ambulatory Orders Cephalexin Monohydrate [Keflex -] 500 mg PO Q8H #30 capsule 09/06/18 Anemia: Yes Asthma: Yes (ASTHMA) COPD: No GI Disorders: (kidney stones) - Immunization History Immunization Up to Date: Yes - Suicide/Smoking/Psychosocial Hx Smoking Status: No Smoking History: Never smoked Have you smoked in the past 12 months: No Number of Cigarettes Smoked Daily: 0 Information on smoking cessation initiated: No Hx Alcohol Use: No Drug/Substance Use Hx: No Substance Use Type: None Hx Substance Use Treatment: No *Physical Exam - Vital Signs Last Vital Signs Temp Pulse Resp BP Pulse Ox 98.8 F 113 H 18 126/79 100 12/13/18 21:11 12/13/18 21:11 12/13/18 21:11 12/13/18 21:11 12/13/18 21:11
--- NOTE | 2018-12-13 21:44 | PDOC ---
History of Present Illness <Ashlee Ramirez - Last Filed: 12/13/18 23:23> - General History Source: Patient Exam Limitations: No Limitations - History of Present Illness Initial Comments: 12/13/18 21:55 23 year old female with no PMH presented to ED for nausea/vomiting/diarrhea/ epigastric pain starting last night after eating pizza. Pt stated she had one episode of nonbloody vomiting today and 3 episodes of loose brown stool. Pt stated she has not eaten all day in fear of vomiting. Pt admitted to fever and chills, but has not taken her temperature. She stated she came to the ED because of the sweats and chills. She did not take any medication including Tylenol today because "I could just come here and get it". Pt stated she took "an old antibiotic I had at home" without relief of her symptoms and stated "I think it was an antibiotic, I dont know". Pt denied travel outside the country, blood in stool, hematemesis. Allergies: NKDA <Carmen Sanders - Last Filed: 12/14/18 18:16> - General Chief Complaint: Nausea/Vomiting Stated Complaint: FEVER/VOMITTING/SHIVERING Time Seen by Provider: 12/13/18 21:30 Past History <Ashlee Ramirez - Last Filed: 12/13/18 23:23> - Past Medical History Anemia: Yes Asthma: Yes (ASTHMA) COPD: No GI Disorders: (kidney stones) - Immunization History Immunization Up to Date: Yes - Suicide/Smoking/Psychosocial Hx Smoking Status: No Smoking History: Never smoked Have you smoked in the past 12 months: No Number of Cigarettes Smoked Daily: 0 Information on smoking cessation initiated: No Hx Alcohol Use: No Drug/Substance Use Hx: No Substance Use Type: None Hx Substance Use Treatment: No <Carmen Sanders - Last Filed: 12/14/18 18:16> - Past Medical History Allergies/Adverse Reactions: Allergies Allergy/AdvReac Type Severity Reaction Status Date / Time No Known Allergies Allergy Verified 12/13/18 21:14 Home Medications: Ambulatory Orders Ondansetron [Zofran Odt -] 4 mg SL TID #6 od.tablet 12/13/18 Review of Systems - Review of Systems Able to Perform ROS?: Yes Comments:: 12/13/18 21:58 General: admitted to subjective fever, chills, sweats, generalized weakness. HEENT: denied sore throat, rhinorrhea, ear pain. Heart: denied chest pain, palpitations, syncope, diaphoresis. Respiratory: denied shortness of breath, cough, sputum production, hemoptysis. Abdomen: admitted to abdominal pain, nausea, vomiting, diarrhea. denied constipation, blood in stool. : denied dysuria, increased urinary frequency, hematuria, urinary incontinence , flank pain. Back: denied back pain. Musculoskeletal: denied joint pain, muscle pain, joint swelling. Neurological: denied headache, dizziness, numbness, tingling, weakness. Skin: denied rash, laceration, abrasion. <Carmen Sanders - Last Filed: 12/14/18 18:16> *Physical Exam - Vital Signs Last Vital Signs Temp Pulse Resp BP Pulse Ox 98.8 F 113 H 18 126/79 100 12/13/18 21:11 12/13/18 21:11 12/13/18 21:11 12/13/18 21:11 12/13/18 21:11 <Ashlee Ramirez - Last Filed: 12/13/18 23:23> - Vital Signs Last Vital Signs Temp Pulse Resp BP Pulse Ox 98.8 F 113 H 18 126/79 100 12/13/18 21:11 12/13/18 21:11 12/13/18 21:11 12/13/18 21:11 12/13/18 21:11 - Physical Exam Comments: 12/13/18 22:00 Constitutional: Well-nourished, Well-developed, appearing stated age. HEENT: head is normocephalic, atraumatic. EOMI. PERRLA. no posterior pharyngeal erythema. no tonsillar swelling or exudates bilaterally. Neck: supple. Full ROM. Heart: regular rhythm. no murmurs, rubs or gallops. Lungs: clear to auscultation bilaterally. no crackles, rhonchi or wheezing. no stridor. Abdomen: soft, nontender. normal bowel sounds. no rebound, guarding, masses. Extremities: peripheral pulses intact. no lower extremity edema. Neurological: CN 2-12 grossly intact. moves all four extremities. Psych: awake, alert, oriented x3. follows commands. answers questions appropriately. <Carmen Sanders - Last Filed: 12/14/18 18:16> ED Treatment Course - LABORATORY CBC & Chemistry Diagram: 12/13/18 21:53 12/13/18 21:53 - ADDITIONAL ORDERS Additional order review: Laboratory Results 12/13/18 12/13/18 21:53 21:53 Sodium 138 Potassium 4.0 Chloride 105 Carbon Dioxide 23 Anion Gap 9 BUN 13 Creatinine 0.8 Creat Clearance w eGFR 90.54 Random Glucose 94 Calcium 8.7 Magnesium 2.2 Total Bilirubin 0.6 AST 28 ALT 21 Alkaline Phosphatase 78 Total Protein 8.3 H Albumin 3.8 Lipase 153 Serum , Qual Negative 12/13/18 21:53 RBC 4.19 MCV 87.2 MCHC 32.3 RDW 14.3 MPV 9.0 Neutrophils % 91.5 H Lymphocytes % 4.1 L D Monocytes % 4.0 Eosinophils % 0.2 Basophils % 0.2 - Medications Given in the ED: ED Medications Discontinued Medications Generic Name Dose Route Start Last Admin Trade Name Freq PRN Reason Stop Dose Admin Al Hydroxide/Mg Hydroxide 30 ml 12/13/18 21:31 12/13/18 22:45 Mylanta Oral Suspension - PO 12/13/18 21:32 30 ml ONCE ONE Administration Famotidine/Sodium Chloride 20 mg in 50 mls @ 100 mls/hr 12/13/18 21:31 22:45 Pepcid 20 Mg Premixed Ivpb - IVPB 12/13/18 22:00 100 mls/hr ONCE ONE Administration Sodium Chloride 1,000 mls @ 1,000 mls/hr 12/13/18 21:31 12/13/18 22:45 Normal Saline - IV 12/13/18 22:30 1,000 mls/hr ASDIR STA Administration Ondansetron HCl 4 mg 12/13/18 21:31 12/13/18 22:45 Zofran Injection IVPUSH 12/13/18 21:32 4 mg ONCE ONE Administration <Ashlee Ramirez - Last Filed: 12/13/18 23:23> - LABORATORY CBC & Chemistry Diagram: 12/13/18 21:53 12/13/18 21:53 <Carmen Sanders - Last Filed: 12/14/18 18:16> Medical Decision Making - Medical Decision Making 12/13/18 22:02 23 year old female with no PMH presented to ED for one episode of vomiting and three episodes of loose watery brown diarrhea associated with sweats and chills. Initial Vital Signs Temp Pulse Resp BP Pulse Ox 98.8 F 113 H 18 126/79 100 12/13/18 21:11 12/13/18 21:11 12/13/18 21:11 12/13/18 21:11 12/13/18 21:11 Afebrile. Tachycardic. No tachypnea. No hypotension. No hypoxia on room air. Labs ordered: CBC, CMP, serum test, lipase, influenza A/B Imaging ordered: none Medications ordered: pepcid, maalox, zofran 4 mg IV, normal saline bolus 1000 cc 12/13/18 22:56 CBC WBC 10.5 K/mm3 (4.0-10.0) H 12/13/18 21:53 RBC 4.19 M/mm3 (3.60-5.2) 12/13/18 21:53 Hgb 11.8 GM/dL (10.7-15.3) 12/13/18 21:53 Hct 36.5 % (32.4-45.2) 12/13/18 21:53 MCV 87.2 fl (80-96) 12/13/18 21:53 MCH 28.2 pg (25.7-33.7) 12/13/18 21:53 MCHC 32.3 g/dl (32.0-36.0) 12/13/18 21:53 RDW 14.3 % (11.6-15.6) 12/13/18 21:53 Plt Count 296 K/MM3 (134-434) 12/13/18 21:53 MPV 9.0 fl (7.5-11.1) 12/13/18 21:53 Absolute Neuts (auto) 9.6 K/mm3 (1.5-8.0) H 12/13/18 21:53 Neutrophils % 91.5 % (42.8-82.8) H 12/13/18 21:53 Lymphocytes % 4.1 % (8-40) L D 12/13/18 21:53 Monocytes % 4.0 % (3.8-10.2) 12/13/18 21:53 Eosinophils % 0.2 % (0-4.5) 12/13/18 21:53 Basophils % 0.2 % (0-2.0) 12/13/18 21:53 Nucleated RBC % 0 % (0-0) 12/13/18 21:53 CMP Sodium 138 mmol/L (136-145) 12/13/18 21:53 Potassium 4.0 mmol/L (3.5-5.1) 12/13/18 21:53 Chloride 105 mmol/L (98-107) 12/13/18 21:53 Carbon Dioxide 23 mmol/L (21-32) 12/13/18 21:53 Anion Gap 9 MMOL/L (8-16) 12/13/18 21:53 BUN 13 mg/dL (7-18) 12/13/18 21:53 Creatinine 0.8 mg/dL (0.55-1.3) 12/13/18 21:53 Creat Clearance w eGFR 90.54 (>60) 12/13/18 21:53 Random Glucose 94 mg/dL (74-106) 12/13/18 21:53 Calcium 8.7 mg/dL (8.5-10.1) 12/13/18 21:53 Magnesium 2.2 mg/dL (1.8-2.4) 12/13/18 21:53 Total Bilirubin 0.6 mg/dL (0.2-1) 12/13/18 21:53 AST 28 U/L (15-37) 12/13/18 21:53 ALT 21 U/L (13-61) 12/13/18 21:53 Alkaline Phosphatase 78 U/L (45-117) 12/13/18 21:53 Total Protein 8.3 g/dl (6.4-8.2) H 12/13/18 21:53 Albumin 3.8 g/dl (3.4-5.0) 12/13/18 21:53 Lipase 153 U/L (73-393) 12/13/18 21:53 Serum , Qual Negative 12/13/18 21:53 Mild leukocytosis with left shift. No electrolyte abnormalities. No AREN. No transaminitis. Normal lipase. Negative test. 12/13/18 23:27 Influenza testing negative. Vital Signs Pulse Rate 92 H 12/13/18 23:30 Tachycardia improved with fluid hydration. Pt reported she is feeling better, stated she would like to go home. Pt discharged with Zofran prescription. <Carmen Sanders - Last Filed: 12/14/18 18:16> *DC/Admit/Observation/Transfer - Discharge Dispostion Decision to Admit order: No <Ashlee Ramirez - Last Filed: 12/13/18 23:23> - Discharge Dispostion Decision to Admit order: No <Carmen Sanders - Last Filed: 12/14/18 18:16> Diagnosis at time of Disposition: Nausea vomiting and diarrhea - Discharge Dispostion Disposition: HOME Condition at time of disposition: Improved - Prescriptions Prescriptions: Ondansetron [Zofran Odt -] 4 mg SL TID #6 od.tablet - Referrals Referrals: Ceci Curiel [Non Staff, Medical] - - Patient Instructions Printed Discharge Instructions: DI for Food Poisoning, [place] Diet, DI for Vomiting -- Adult Additional Instructions: Your lab work was normal. Your Influenza testing was negative. Drink pedialyte and gatorade to replenish the electrolytes you have lost in the diarrhea. Take tylenol over the counter for pain/fever, take as advised on label. Do not take leftover antibiotics that you have laying around. Throw them away. You will give yourself more diarrhea by taking them. Do not take medications if you do not know what it is. Follow up with your primary care doctor within 3-5 days. Eat bland foods to avoid irritating your stomach - bread, rice, toast, applesauce. Progress your diet as tolerated. - Post Discharge Activity
[2018-12-13] MEDS ORDERED: ACETAMINOPHEN 1000 MG/100 ML VIAL (NON FORMULARY) IVPB ONE (21:58)
[2018-12-13 22:01] LABS: BASO % 0.2 % (0-2.0); EOS % 0.2 % (0-4.5); HEMATOCRIT 36.5 % (32.4-45.2); HEMOGLOBIN 11.8 GM/dL (10.7-15.3); LYMPH % 4.1 % (8-40); MCH 28.2 pg (25.7-33.7); MCHC 32.3 g/dl (32.0-36.0); MEAN CELL VOLUME 87.2 fl (80-96); NEUT % 91.5 % (42.8-82.8); PLATELET COUNT 296 K/MM3 (134-434); RBC 4.19 M/mm3 (3.60-5.2); RDW 14.3 % (11.6-15.6); WHITE BLOOD COUNT 10.5 K/mm3 (4.0-10.0)
--- NOTE | 2018-12-13 22:29 | PDOC ---
Attending Attestation - HPI HPI: 12/13/18 23:00 The patient is a 23 year old female with a significant PMH of Anemia, asthma, and kidney stones who presents to the emergency department with one day of nausea, vomiting, diarrhea, and epigastric pain. The patient states her symptoms started after eating pizza last night. The patient states she endorsed one episode of non bloody vomiting and 3 episodes of loose brown stool. The patient notes she endorses subjective fever, sweats and chills, secondary to her symptoms. The patient denies taking any pain medication or eating any meals today. The patient denies sick contact or burning on urination. The patient denies chest pain, shortness of breath, headache or dizziness.. The patient denies dysuria, frequency, urgency or hematuria. Allergies: NKDA Past surgical history: None reported Social history: None reported PCP: Nasima Sherwood - Physicial Exam PE: 12/13/18 23:01 GENERAL: Awake, alert, and fully oriented, in no acute distress HEAD: No signs of trauma EYES: PERRLA, EOMI, sclera anicteric, conjunctiva clear ENT: Auricles normal inspection, hearing grossly normal, nares patent, oropharynx clear without exudates. Moist mucosa NECK: Normal ROM, supple, no lymphadenopathy, JVD, or masses LUNGS: Breath sounds equal, clear to auscultation bilaterally. No wheezes, and no crackles HEART: Regular rate and rhythm, normal S1 and S2, no murmurs, rubs or gallops ABDOMEN: Soft, nontender, normoactive bowel sounds. No guarding, no rebound. No masses EXTREMITIES: Normal range of motion, no edema. No clubbing or cyanosis. No cords, erythema, or tenderness NEUROLOGICAL: Cranial nerves II through XII grossly intact. Normal speech, normal gait SKIN: Warm, Dry, normal turgor, no rashes or lesions noted. <Royer Douglas - Last Filed: 12/13/18 23:00> - Resident Resident Name: Carmen Sanders - ED Attending Attestation I have performed the following: I have examined & evaluated the patient, The case was reviewed & discussed with the resident, I agree w/resident's findings & plan - Medical Decision Making 12/13/18 22:59 Pt had 1 episode of vomiting and 3 episodes of diarrhea; she thinks that she was food poisoned with bad pizza. She has no other complaints. No fever or chills or abd pain or dysuria at this time. She has no other complaints. <Ashlee Ramirez - Last Filed: 12/13/18 23:23> Attestations - Attestations 12/13/18 23:02 Documentation prepared by Royer Douglas, acting as medical investigator for Ashlee Ramirez MD <Royer Douglas - Last Filed: 12/13/18 23:00>
[2018-12-13] MEDS ORDERED: MAG HYDROX/AL HYDROX/SIMETH 30 ML UNIT-DOSE CUP ONE (22:34)
[2018-12-13] MEDS ORDERED: ONDANSETRON 4 MG/2 ML VIAL ONE (22:34)
[2018-12-13 22:37] LABS: ALBUMIN 3.8 g/dl (3.4-5.0); ALK PHOS 78 U/L (45-117); BILIRUBIN,TOTAL 0.6 mg/dL (0.2-1); BLOOD UREA NITROGEN 13 mg/dL (7-18); CALCIUM 8.7 mg/dL (8.5-10.1); CHLORIDE 105 mmol/L (98-107); CO2 23 mmol/L (21-32); CREATININE 0.8 mg/dL (0.55-1.3); GLUCOSE,RANDOM 94 mg/dL (74-106); LIPASE 153 U/L (73-393); SGPT/ALT 21 U/L (13-61); SODIUM 138 mmol/L (136-145); TOT PROT 8.3 g/dl (6.4-8.2)
[2018-12-13 22:38] LABS: ANION GAP 9 MMOL/L (8-16); MAGNESIUM 2.2 mg/dL (1.8-2.4); SGOT/AST 28 U/L (15-37)
[2018-12-13] MEDS ORDERED: ACETAMINOPHEN INJECTION 100 ML IVPB ONE (22:55)
[2018-12-13 23:06] LABS: PLATELET ESTIMATE ADEQUATE
[2018-12-14 00:19] VITALS: PULSE 92
== END 2018-12-13 23:50 | disposition home or self-care (01) ==
LOC: JER 21:05
PROC: 3E033GC Introduction of Other Therapeutic Substance into Peripheral Vein, Percutaneous Approach (ICD-10-PCS; principal; 2018-12-13)
PROC: 3E033NZ Introduction of Analgesics, Hypnotics, Sedatives into Peripheral Vein, Percutaneous Approach (ICD-10-PCS; 2018-12-13)
PROC: 3E033GC Introduction of Other Therapeutic Substance into Peripheral Vein, Percutaneous Approach (ICD-10-PCS; 2018-12-13)
DX: R11.2 Nausea with vomiting, unspecified (principal)
CPT/HCPCS: 36415; 80053; 83690; 83735; 84703; 85025; 87804; 96365; 96375; 99282-25; J0131; J7030

== ENCOUNTER 2019-06-22 01:47 | Emergency (ER) | payer OTHER ==
--- NOTE | 2019-06-22 01:57 | PDOC ---
History of Present Illness - General Stated Complaint: SYNCOPE/NEAR SYNCOPE Time Seen by Provider: 06/22/19 01:57 - History of Present Illness Initial Comments: 06/22/19 01:59 24 year old woman with no pmhx who presents with 2 days of runny nose, congestion, weakness presenting after syncopal episode in the shower at 0100. She does not know how long she was passed out but she awoke on the shower floor. She denies any pain, chest pain, shortness of breath, abdominal pain or any other complaints. ROS GENERAL/CONSTITUTIONAL: No fever or chills. No weakness. CARDIOVASCULAR: No chest pain or shortness of breath RESPIRATORY: No cough, wheezing, or hemoptysis. GASTROINTESTINAL: No nausea, vomiting, diarrhea or constipation. GENITOURINARY: No dysuria, frequency, or change in urination. MUSCULOSKELETAL: No joint or muscle swelling or pain. No neck or back pain. SKIN: No rash NEUROLOGIC: No headache, vertigo, + loss of consciousness, No change in strength /sensation. PE GENERAL: Awake, alert, and fully oriented, in no acute distress HEAD: No signs of trauma, normocephalic, atraumatic EYES: EOMI, sclera anicteric, conjunctiva clear ENT: oropharynx clear without exudates. Moist mucosa NECK: Normal ROM, supple LUNGS: No distress, speaks full sentences, clear to auscultation bilaterally HEART: Regular rate and rhythm, normal S1 and S2, no murmurs, rubs or gallops, peripheral pulses normal and equal bilaterally. ABDOMEN: Soft, nontender, normoactive bowel sounds. No guarding, no rebound. No masses EXTREMITIES : Normal inspection, Normal range of motion, no edema. No clubbing or cyanosis. NEUROLOGICAL: Cranial nerves II through XII grossly intact. Normal speech, no focal sensorimotor deficits SKIN: Warm, Dry, normal turgor, no rashes or lesions noted MDM DDX including but not limited to: viral syndrome r./o arrythmia most consistent with vasovagal syncope W/U: - cbc, cmp, ekg, ua ,upreg [place]: - tylenol, ivf ED Course: ekg tachy 107bpm improved on reassessment d/c with pcp f/u Xochitl Moeller, PGY2 Emergency Medicine 06/22/19 03:14 06/22/19 06:11 Past History - Past Medical History Allergies/Adverse Reactions: Allergies Allergy/AdvReac Type Severity Reaction Status Date / Time No Known Allergies Allergy Verified 12/13/18 21:14 Anemia: Yes Asthma: Yes (ASTHMA) COPD: No GI Disorders: (kidney stones) - Immunization History Immunization Up to Date: Yes - Psycho Social/Smoking Cessation Hx Smoking Status: No Smoking History: Never smoked Have you smoked in the past 12 months: No Number of Cigarettes Smoked Daily: 0 Hx Alcohol Use: No Drug/Substance Use Hx: No Substance Use Type: None Hx Substance Use Treatment: No ED Treatment Course - LABORATORY CBC & Chemistry Diagram: 06/22/19 02:22 06/22/19 02:22 Discharge - Discharge Information Problems reviewed: Yes Clinical Impression/Diagnosis: Viral syndrome Condition: Stable Disposition: HOME - Admission No - Follow up/Referral Referrals: Kylah Hernandez [Primary Care Provider] - - Patient Discharge Instructions Patient Printed Discharge Instructions: DI for Viral Upper Respiratory Infection -- Adult Additional Instructions: You were seen in the ER for complaints of fever and passing out You had symptomatic improvement and unremarkable labs. Please follow up with your Family Doctor in 1 week. Take Tylenol and Motrin for symptom relief and drink plenty of fluids Return to the ED if you have worsening symptoms or difficulty breathing or repeat loss of consciousness. - Post Discharge Activity
[2019-06-22] MEDS ORDERED: ACETAMINOPHEN 1000 MG/100 ML VIAL (NON FORMULARY) IVPB ONE (02:14)
[2019-06-22] MEDS ORDERED: SODIUM CHLORIDE 1,000 ML IV SCH (02:15)
[2019-06-22] MEDS ORDERED: ACETAMINOPHEN INJECTION 100 ML IVPB ONE (02:27)
--- NOTE | 2019-06-22 02:32 | PDOC ---
Attending Attestation - Resident Resident Name: Xochitl Moeller - ED Attending Attestation I have performed the following: I have examined & evaluated the patient, The case was reviewed & discussed with the resident, I agree w/resident's findings & plan - HPI HPI: 06/22/19 04:33 Pt comes with flu like symtoms. She passed out in the shower. States that she felt weak. Doesn't know if she lsot consciousness or if she hit her head. No hematomas and she has no head contusions and no hematomas. - Physicial Exam PE: 06/22/19 04:35 Agree with resident exam. Pt has no fevers or chills and no neuro findings. She is neurologically intact. NCAT PERRLA. heart RRR lungs clear. - Medical Decision Making 06/22/19 03:13 Pt has fever; but no HEENT infection. CXR pending Flu negative; elevated WBC and shift 91% 06/22/19 04:35 CXR clear 06/22/19 04:36 flu and strep negative labs normal; WBC is elevated. likely reflexts her viral illness. 06/22/19 04:37 Home with tylenol and motrin
[2019-06-22 02:34] LABS: BASO % 0.4 % (0-2.0); EOS % 0.9 % (0-4.5); HEMATOCRIT 34.8 % (32.4-45.2); HEMOGLOBIN 11.1 GM/dL (10.7-15.3); LYMPH % 3.1 % (8-40); MCH 27.5 pg (25.7-33.7); MEAN PLT VOLUME 9.7 fl (7.5-11.1); NEUT % 91.6 % (42.8-82.8); PLATELET COUNT 330 K/MM3 (134-434); RBC 4.04 M/mm3 (3.60-5.2); RDW 16.1 % (11.6-15.6)
[2019-06-22 02:36] VITALS: BMI 24.1
[2019-06-22 02:43] LABS: EPI CELLS 10.2 /HPF (0-5/HPF); HYALINE CASTS 13 /lpf (0-8); PH,URINE 5.5 (5.0-8.0); URINE APPEARANCE CLEAR; URINE BACTERIA 94.3 /hpf (NEGATIVE); URINE BILIRUBIN NEGATIVE (NEGATIVE); URINE COLOR YELLOW; URINE GLUCOSE (UA) NEGATIVE (NEGATIVE); URINE KETONE 3+ (NEGATIVE); URINE LEUK ESTERASE 1+ (NEGATIVE); URINE NITRITE NEGATIVE (NEGATIVE); URINE PROTEIN TRACE (NEGATIVE); URINE RBC 2 /hpf (0-4); URINE WBC 15 /hpf (0-5)
[2019-06-22 02:49] LABS: ALBUMIN 4.4 g/dl (3.4-5.0); BILIRUBIN,TOTAL 0.6 mg/dL (0.2-1); BLOOD UREA NITROGEN 12.9 mg/dL (7-18); CALCIUM 9.2 mg/dL (8.5-10.1); POTASSIUM 3.2 mmol/L (3.5-5.1); TOT PROT 8.6 g/dl (6.4-8.2)
[2019-06-22 04:26] VITALS: BP 145/68; PULSE 100; TEMP 99.1
--- NOTE | 2019-06-22 10:30 | EKG ---
Test Reason : Blood Pressure : / mmHG Vent. Rate : 107 BPM Atrial Rate : 107 BPM P-R Int : 152 ms QRS Dur : 076 ms QT Int : 322 ms P-R-T Axes : 056 007 041 degrees QTc Int : 429 ms SINUS TACHYCARDIA OTHERWISE NORMAL ECG NO PREVIOUS ECGS AVAILABLE Confirmed by MD COREY, LAYA ([id number]) on 06/22/2019 10:29:59 AM Referred By: Confirmed By:LAYA NICOLE MD
== END 2019-06-22 04:26 | disposition home or self-care (01) ==
LOC: JER 01:47
PROC: 3E033NZ Introduction of Analgesics, Hypnotics, Sedatives into Peripheral Vein, Percutaneous Approach (ICD-10-PCS; principal; 2019-06-22)
DX: B34.9 Viral infection, unspecified (principal); J45.909 Unspecified asthma, uncomplicated; D64.9 Anemia, unspecified
CPT/HCPCS: 36415; 71046-TC-FY; 80053; 81003; 84703; 85025; 87070; 87077; 87086; 87804; 87880; 93005; 93010; 96374; 99283-25; J0131; J7030

== ENCOUNTER 2019-08-04 21:21 | Emergency (ER) | payer OTHER ==
[2019-08-04 21:28] VITALS: BP 141/87; PULSE 94; TEMP 98.2; BMI 24.1
--- NOTE | 2019-08-04 22:00 | PDOC ---
History of Present Illness - General Chief Complaint: Pain Stated Complaint: INDEX FINGER PAIN Time Seen by Provider: 08/04/19 21:38 History Source: Patient - History of Present Illness Initial Comments: 08/04/19 21:54 24 year old female c/o right third finger nail lifting off the nail bed , patient reports that this occured 4 days now with increased pain to the nail with clear drainage and redness to the finger tip. denies fever/ chills. no past medical history Past History - Past Medical History Allergies/Adverse Reactions: Allergies Allergy/AdvReac Type Severity Reaction Status Date / Time No Known Allergies Allergy Verified 12/13/18 21:14 Home Medications: Ambulatory Orders Bacitracin - [Bacitracin Topical Ointment -] 1 applic TP TID #1 tube 08/04/19 Cephalexin Monohydrate [Keflex -] 500 mg PO BID #14 capsule 08/04/19 Ibuprofen 600 mg PO QID PRN #20 tablet 08/04/19 Anemia: Yes Asthma: Yes (ASTHMA) COPD: No GI Disorders: (kidney stones) - Immunization History Immunization Up to Date: Yes - Psycho Social/Smoking Cessation Hx Smoking Status: No Smoking History: Never smoked Have you smoked in the past 12 months: No Number of Cigarettes Smoked Daily: 0 Hx Alcohol Use: No Drug/Substance Use Hx: No Substance Use Type: None Hx Substance Use Treatment: No Review of Systems - Review of Systems Able to Perform ROS?: Yes Is the patient limited Turkish proficient: No Integumentary: Yes: Other (finger pain) *Physical Exam - Vital Signs Last Vital Signs Temp Pulse Resp BP Pulse Ox 98.2 F 94 H 20 141/87 100 08/04/19 21:26 08/04/19 21:26 08/04/19 21:26 08/04/19 21:26 08/04/19 21:26 - Physical Exam General Appearance: Yes: Appropriately Dressed Extremity: positive: Other (right third index fingertip redness, nail partial avulsion) Integumentary: positive: Normal Color, Dry, Warm Neurologic: positive: Fully Oriented, Alert, Normal Mood/Affect ED Progress Note - Progress Note Progress Note: 08/04/19 21:59 A: right third digit cellulitis P: cephalexin wound check in 2 days with pcp Discharge - Discharge Information Problems reviewed: Yes Clinical Impression/Diagnosis: Cellulitis of finger of right hand Fingernail avulsion, partial Qualifiers: Encounter type: initial encounter Qualified Code(s): S61.309A - Unspecified open wound of unspecified finger with damage to nail, initial encounter Condition: Good Disposition: HOME - Additional Discharge Information Prescriptions: Bacitracin - [Bacitracin Topical Ointment -] 1 applic TP TID #1 tube Cephalexin Monohydrate [Keflex -] 500 mg PO BID #14 capsule Ibuprofen 600 mg PO QID PRN #20 tablet PRN Reason: Pain - Follow up/Referral Referrals: Kylah Hernandez [Primary Care Provider] - - Patient Discharge Instructions Patient Printed Discharge Instructions: Cellulitis Additional Instructions: apply warm soaks take cephalexin as prescribed apply bacitracin to the finger follow up with your doctor in 2 days for a wound check' your finger nail will fall off by itself. - Post Discharge Activity Work/Back to School Note: Back to Work
[2019-08-04] MEDS ORDERED: IBUPROFEN 600 MG TABLET (FP) PO ONE ×2 (22:03→22:06)
== END 2019-08-04 22:26 | disposition home or self-care (01) ==
LOC: JERFT 21:21 → JER 21:21 → JERFT 22:26
DX: S61.302A Unspecified open wound of right middle finger with damage to nail, initial encounter (principal); L03.011 Cellulitis of right finger; X58.XXXA Exposure to other specified factors, initial encounter; Y93.89 Activity, other specified; Y92.89 Other specified places as the place of occurrence of the external cause; Y99.8 Other external cause status
CPT/HCPCS: 99281-25

== ENCOUNTER 2020-07-15 16:02 | Emergency (ER) | payer OTHER ==
[2020-07-15 16:09] VITALS: BP 133/95; PULSE 86; TEMP 98; BMI 25.0
[2020-07-15] MEDS ORDERED: hydrOXYzine PAMOATE 50 MG CAPSULE (FP) PO ONE (16:47)
[2020-07-15 17:27] LABS: BASO % 0.6 % (0-2.0); EOS % 0.3 % (0-4.5); HEMATOCRIT 32.7 % (32.4-45.2); HEMOGLOBIN 10.5 GM/dL (10.7-15.3); LYMPH % 15.2 % (8-40); MCH 25.4 pg (25.7-33.7); MEAN CELL VOLUME 79.6 fl (80-96); MEAN PLT VOLUME 9.8 fl (7.5-11.1); MONO % 3.8 % (3.8-10.2); NEUT % 80.1 % (42.8-82.8); PLATELET COUNT 378 K/MM3 (134-434); RBC 4.11 M/mm3 (3.60-5.2); RDW 16.9 % (11.6-15.6); WHITE BLOOD COUNT 8.3 K/mm3 (4.0-10.0)
[2020-07-15 17:50] LABS: CHLORIDE 107 mmol/L (98-107); POTASSIUM 3.9 mmol/L (3.5-5.1); SODIUM 138 mmol/L (136-145)
[2020-07-15 17:52] LABS: CALCIUM 9.1 mg/dL (8.5-10.1)
[2020-07-15 17:53] LABS: ALBUMIN 4.3 g/dl (3.4-5.0); ANION GAP 8 MMOL/L (8-16); BLOOD UREA NITROGEN 8.4 mg/dL (7-18); CO2 24 mmol/L (21-32); GLUCOSE,RANDOM 90 mg/dL (74-106)
[2020-07-15 17:56] LABS: CREATININE 0.8 mg/dL (0.55-1.3); SGOT/AST 21 U/L (15-37); SGPT/ALT 16 U/L (13-61)
[2020-07-15 17:58] LABS: BILIRUBIN,TOTAL 0.4 mg/dL (0.2-1)
[2020-07-15 17:59] LABS: ALK PHOS 83 U/L (45-117)
[2020-07-15 18:10] LABS: EPI CELLS >36 /uL (0-25.1); HYALINE CASTS 3 /uL (0-3.1); URINE APPEARANCE CLEAR; URINE BACTERIA 2078 /uL (0-1359); URINE BILIRUBIN NEGATIVE (NEGATIVE); URINE COLOR YELLOW; URINE GLUCOSE (UA) NEGATIVE (NEGATIVE); URINE KETONE TRACE (NEGATIVE); URINE LEUK ESTERASE 1+ (NEGATIVE); URINE NITRITE NEGATIVE (NEGATIVE); URINE PROTEIN NEGATIVE (NEGATIVE); URINE RBC 9 /uL (0-23.9); URINE WBC 62 /uL (0-25.8)
[2020-07-15 18:11] LABS: HCG,QUALITATIVE URINE Negative
[2020-07-15 18:21] LABS: PHENCYCLIDINE,URINE NEGATIVE ng/ml (CUTOFF=25)
[2020-07-15 18:22] LABS: COCAINE, UR NEGATIVE ng/ml (CUTOFF=300); URINE AMPHETAMINES NEGATIVE ng/ml (CUTOFF=500); URINE BARBITURATES NEGATIVE ng/ml (CUTOFF=200)
[2020-07-15 18:26] LABS: METHADONE, UR NEGATIVE ng/ml (CUTOFF=300); OPIATES, URI NEGATIVE ng/ml (CUTOFF=300); URINE BENZODIAZEPINES NEGATIVE ng/ml (CUTOFF=200)
== END 2020-07-15 19:00 | disposition home or self-care (01) ==
LOC: JER 16:02
DX: F41.9 Anxiety disorder, unspecified (principal); N39.0 Urinary tract infection, site not specified
CPT/HCPCS: 36415; 71046-TC-FY; 80053; 80307; 81003; 82550; 82553; 84439; 84443; 84481; 84484; 84703; 85025; 93005; 93010; 99285-25

== ENCOUNTER 2020-09-25 07:44 | Emergency (ER) | payer OTHER ==
[2020-09-25 08:04] VITALS: BP 128/88; PULSE 83; TEMP 98.1; BMI 27.8
[2020-09-25 09:42] LABS: BASO % 0.3 % (0-2.0); EOS % 1.8 % (0-4.5); HEMATOCRIT 31.9 % (32.4-45.2); HEMOGLOBIN 10.4 GM/dL (10.7-15.3); LYMPH % 21.3 % (8-40); MCH 27.2 pg (25.7-33.7); MCHC 32.5 g/dl (32.0-36.0); MEAN CELL VOLUME 83.5 fl (80-96); MEAN PLT VOLUME 9.6 fl (7.5-11.1); MONO % 4.8 % (3.8-10.2); NEUT % 71.8 % (42.8-82.8); PLATELET COUNT 308 K/MM3 (134-434); RBC 3.83 M/mm3 (3.60-5.2); RDW 18.7 % (11.6-15.6); WHITE BLOOD COUNT 7.2 K/mm3 (4.0-10.0)
[2020-09-25 09:53] LABS: EPI CELLS 29 /uL (0-25.1); HYALINE CASTS 4 /uL (0-3.1); URINE APPEARANCE CLEAR; URINE BACTERIA 353 /uL (0-1359); URINE BILIRUBIN NEGATIVE (NEGATIVE); URINE COLOR YELLOW; URINE GLUCOSE (UA) NEGATIVE (NEGATIVE); URINE KETONE NEGATIVE (NEGATIVE); URINE LEUK ESTERASE NEGATIVE (NEGATIVE); URINE NITRITE NEGATIVE (NEGATIVE); URINE PROTEIN NEGATIVE (NEGATIVE); URINE RBC 23 /uL (0-23.9); URINE UROBILINOGEN 0.2 mg/dL (0.2-1.0); URINE WBC 11 /uL (0-25.8)
[2020-09-25 10:00] LABS: POTASSIUM 3.8 mmol/L (3.5-5.1)
[2020-09-25 10:02] LABS: INR 1.13 (0.83-1.09); PROTHROMBIN TIME (PATIENT) 13.9 SEC (9.7-13.0)
[2020-09-25 10:04] LABS: ACTIVATED PTT 31.2 SECONDS (25.2-36.5)
[2020-09-25 10:06] LABS: CREATININE 0.6 mg/dL (0.55-1.3)
[2020-09-25 10:08] LABS: BILIRUBIN,TOTAL 0.2 mg/dL (0.2-1); TOT PROT 7.7 g/dl (6.4-8.2)
[2020-09-25 10:41] LABS: BLOOD UREA NITROGEN 8.1 mg/dL (7-18)
== END 2020-09-25 10:50 | disposition home or self-care (01) ==
LOC: JER 07:44
DX: O03.9 Complete or unspecified spontaneous abortion without complication (principal)
CPT/HCPCS: 36415; 76817-TC; 80053; 81003; 84702; 85025; 85610; 85730; 86850; 86900; 86901; 87086; 99284-25

== ENCOUNTER 2021-03-11 07:15 | Emergency (ER) | payer OTHER ==
[2021-03-11 07:31] VITALS: TEMP 97.8; BMI 27.4
[2021-03-11 08:25] LABS: BASO % 0.9 % (0-2.0); EOS % 1.4 % (0-4.5); HEMOGLOBIN 8.7 GM/dL (10.7-15.3); LYMPH % 21.2 % (8-40); MCH 21.5 pg (25.7-33.7); MEAN CELL VOLUME 69.6 fl (80-96); MEAN PLT VOLUME 8.3 fl (7.5-11.1); MONO % 5.4 % (3.8-10.2); NEUT % 71.1 % (42.8-82.8); PLATELET COUNT 503 10^3/uL (134-434); RBC 4.02 M/mm3 (3.60-5.2); RDW 17.6 % (11.6-15.6); WHITE BLOOD COUNT 9.2 K/mm3 (4.0-10.0)
[2021-03-11 08:54] LABS: CHLORIDE 108 mmol/L (98-107); SODIUM 138 mmol/L (136-145)
[2021-03-11 08:56] LABS: ALBUMIN 4.3 g/dl (3.4-5.0); ANION GAP 9 MMOL/L (8-16); BLOOD UREA NITROGEN 10.3 mg/dL (7-18); CALCIUM 8.7 mg/dL (8.5-10.1); CO2 21 mmol/L (21-32); GLUCOSE,RANDOM 95 mg/dL (74-106)
[2021-03-11 08:59] LABS: SGPT/ALT 23 U/L (13-61)
[2021-03-11 09:00] LABS: CREATININE 0.9 mg/dL (0.55-1.3); SGOT/AST 34 U/L (15-37)
[2021-03-11 09:01] LABS: BILIRUBIN,TOTAL 0.4 mg/dL (0.2-1); TOT PROT 9.1 g/dl (6.4-8.2)
[2021-03-11 09:02] LABS: ALK PHOS 78 U/L (45-117)
[2021-03-11] MEDS ORDERED: SODIUM CHLORIDE 500 ML IV ONE (09:39)
[2021-03-11 10:37] VITALS: BP 131/85; PULSE 88
[2021-03-11 12:09] LABS: ANISOCYTOSIS 1+; MACROCYTOSIS 0; PLATELET ESTIMATE INCREASED
== END 2021-03-11 10:37 | disposition home or self-care (01) ==
LOC: JER 07:15
PROC: 3E0337Z Introduction of Electrolytic and Water Balance Substance into Peripheral Vein, Percutaneous Approach (ICD-10-PCS; principal; 2021-03-11)
DX: R07.9 Chest pain, unspecified (principal); F41.9 Anxiety disorder, unspecified
CPT/HCPCS: 36415; 71046-TC-FY; 80053; 82550; 82553; 84484; 85025; 93005; 93010; 99285-25

== ENCOUNTER 2021-04-07 12:16 | Emergency (ER) | payer OTHER ==
[2021-04-07 12:22] VITALS: BMI 27.4
[2021-04-07] MEDS ORDERED: SODIUM CHLORIDE 1,000 ML IV STA ×2 (12:48→14:00)
[2021-04-07] MEDS ORDERED: ACETAMINOPHEN 1000 MG/100 ML VIAL IVPB ONE (12:48)
[2021-04-07] MEDS ORDERED: ACETAMINOPHEN INJECTION 100 ML IVPB ONE (12:51)
[2021-04-07 13:25] LABS: BASO % 0.3 % (0-2.0); HEMATOCRIT 26.6 % (32.4-45.2); HEMOGLOBIN 8.4 GM/dL (10.7-15.3); LYMPH % 6.4 % (8-40); MCH 21.5 pg (25.7-33.7); MCHC 31.6 g/dl (32.0-36.0); MEAN CELL VOLUME 68.1 fl (80-96); MEAN PLT VOLUME 8.5 fl (7.5-11.1); MONO % 8.5 % (3.8-10.2); NEUT % 84.8 % (42.8-82.8); PLATELET COUNT 343 10^3/uL (134-434); RBC 3.91 M/mm3 (3.60-5.2); RDW 18.4 % (11.6-15.6); WHITE BLOOD COUNT 7.4 K/mm3 (4.0-10.0)
[2021-04-07 13:48] LABS: CALCIUM 8.6 mg/dL (8.5-10.1)
[2021-04-07 13:49] LABS: ALBUMIN 4.1 g/dl (3.4-5.0); BLOOD UREA NITROGEN 14.9 mg/dL (7-18)
[2021-04-07 13:52] LABS: CREATININE 1.1 mg/dL (0.55-1.3)
[2021-04-07 13:54] LABS: BILIRUBIN,TOTAL 0.4 mg/dL (0.2-1); TOT PROT 8.7 g/dl (6.4-8.2)
[2021-04-07 14:16] LABS: ANISOCYTOSIS 1+; MACROCYTOSIS 1+; PLATELET ESTIMATE NORMAL
[2021-04-07 15:07] LABS: EPI CELLS >36 /uL (0-25.1); HYALINE CASTS 9 /uL (0-3.1); URINE APPEARANCE CLOUDY; URINE BACTERIA 746 /uL (0-1359); URINE BILIRUBIN NEGATIVE (NEGATIVE); URINE COLOR DK YELLOW; URINE GLUCOSE (UA) NEGATIVE (NEGATIVE); URINE KETONE TRACE (NEGATIVE); URINE LEUK ESTERASE 1+ (NEGATIVE); URINE NITRITE NEGATIVE (NEGATIVE); URINE PROTEIN TRACE (NEGATIVE); URINE RBC 20 /uL (0-23.9); URINE WBC 119 /uL (0-25.8)
[2021-04-07 15:15] LABS: HCG,QUALITATIVE URINE Negative
[2021-04-07 16:35] VITALS: BP 136/90; PULSE 109; TEMP 99.5
== END 2021-04-07 20:43 | disposition home or self-care (01) ==
LOC: JER 12:16
PROC: 3E0333Z Introduction of Anti-inflammatory into Peripheral Vein, Percutaneous Approach (ICD-10-PCS; principal; 2021-04-07)
PROC: 3E0337Z Introduction of Electrolytic and Water Balance Substance into Peripheral Vein, Percutaneous Approach (ICD-10-PCS; 2021-04-07)
PROC: 3E0337Z Introduction of Electrolytic and Water Balance Substance into Peripheral Vein, Percutaneous Approach (ICD-10-PCS; 2021-04-07)
DX: U07.1 COVID-19 (principal); N30.00 Acute cystitis without hematuria
CPT/HCPCS: 36415; 71046-TC-FY; 74176-TC; 80053; 81003; 84703; 85025; 87086; 96361; 96374; 99285-25; C9803; J0131; U0003; U0005

== ENCOUNTER 2021-05-08 04:18 | Emergency (ER) | payer OTHER ==
[2021-05-08 04:33] VITALS: BP 124/78; PULSE 112; BMI 27.4
[2021-05-08] MEDS ORDERED: IBUPROFEN 600 MG TABLET (FP) PO ONE (05:13)
== END 2021-05-08 06:54 | disposition home or self-care (01) ==
LOC: JER 04:18
PROC: 2W3RX1Z Immobilization of Left Lower Leg using Splint (ICD-10-PCS; principal; 2021-05-08)
DX: S82.832A Other fracture of upper and lower end of left fibula, initial encounter for closed fracture (principal); Y04.8XXA Assault by other bodily force, initial encounter
CPT/HCPCS: 73610-TC-LT-FY; 73630-TC-LT; 99283-25

== ENCOUNTER 2022-05-19 10:45 | Inpatient (IN) | payer OTHER ==
[2022-05-19] MEDS ORDERED: PROMETHAZINE HCL 25 MG/1 ML VIAL IVPUSH ONE (14:54)
[2022-05-19] MEDS ORDERED: BUTORPHANOL TARTRATE 2 MG/ML VIAL IVPB PRN (14:54)
[2022-05-19] MEDS ORDERED: ELECTROLYTE-148 SOLN 1,000 ML IV SCH (15:00)
[2022-05-19 15:22] LABS: BASO % 0.2 % (0-2.0); EOS % 0.1 % (0-4.5); HEMATOCRIT 34.3 % (32.4-45.2); HEMOGLOBIN 11.5 GM/dL (10.7-15.3); LYMPH % 8.2 % (8-40); MCH 30.7 pg (25.7-33.7); MCHC 33.7 g/dl (32.0-36.0); MEAN CELL VOLUME 91.1 fl (80-96); MONO % 4.5 % (3.8-10.2); PLATELET COUNT 213 10^3/uL (134-434); RBC 3.76 M/mm3 (3.60-5.2); RDW 14.3 % (11.6-15.6); WHITE BLOOD COUNT 16.2 K/mm3 (4.0-10.0)
[2022-05-19 15:25] LABS: INR 0.93 (0.83-1.09); PROTHROMBIN TIME (PATIENT) 10.7 SEC (9.7-13.0)
[2022-05-19 15:28] LABS: ACTIVATED PTT 26.2 SECONDS (25.2-36.5)
[2022-05-19 15:55] VITALS: BMI 29.4
[2022-05-19 15:58] LABS: CALCIUM 8.5 mg/dL (8.5-10.1)
[2022-05-19 15:59] LABS: BLOOD UREA NITROGEN 6.7 mg/dL (7-18)
[2022-05-19 16:02] LABS: CREATININE 0.6 mg/dL (0.55-1.3)
[2022-05-19] MEDS ORDERED: BUTORPHANOL TARTRATE 2 MG/ML VIAL ONE (16:15)
[2022-05-19] MEDS ORDERED: PROMETHAZINE HCL 25 MG/1 ML VIAL ONE (16:15)
[2022-05-19] MEDS ORDERED: OXYTOCIN 20 UNITS in 0.9% NS 20 UNIT/1,000 ML INFUS.BAG IV ONE (17:50)
[2022-05-19] MEDS ORDERED: IBUPROFEN 600 MG TABLET (FP) PO ONE (19:59)
[2022-05-19] MEDS ORDERED: BENZOCAINE 20% 57 GM BOTTLE TP PRN (20:05)
[2022-05-19] MEDS ORDERED: BISACODYL 10 MG SUPP.RECT RC PRN (20:05)
[2022-05-19] MEDS ORDERED: WITCH HAZEL 50% (TUCKS) 40 PAD/JAR PAD TP PRN (20:05)
[2022-05-19] MEDS ORDERED: oxyCODONE HCL 5 MG TABLET PO PRN (20:05)
[2022-05-19] MEDS ORDERED: BENZOCAINE 28 GM HEMORRHOIDAL OINTMENT TP PRN (20:05)
[2022-05-19] MEDS ORDERED: METHYLERGONOVINE MALEATE 0.2 MG/1 ML AMP IM PRN (20:05)
[2022-05-19] MEDS: IBUPROFEN 600 MG TABLET (FP) PO PRN (20:11)
[2022-05-19] MEDS ORDERED: OXYTOCIN 20 UNITS in 0.9% NS 20 UNIT/1,000 ML INFUS.BAG IV SCH (20:15)
[2022-05-20] MEDS: PRENATAL VITAMINS W/ FOLIC ACID TABLET (FP) PO SCH (09:02)
[2022-05-20] MEDS: IBUPROFEN 600 MG TABLET (FP) PO PRN (09:02)
[2022-05-20] MEDS: FERROUS SO4 325 MG TABLET (FP) PO SCH ×3 (09:02→17:46)
[2022-05-20 09:31] LABS: BASO % 0.3 % (0-2.0); EOS % 0.1 % (0-4.5); HEMATOCRIT 29.5 % (32.4-45.2); HEMOGLOBIN 10.2 GM/dL (10.7-15.3); LYMPH % 10.2 % (8-40); MCH 32.1 pg (25.7-33.7); MCHC 34.5 g/dl (32.0-36.0); MEAN CELL VOLUME 93.3 fl (80-96); MONO % 5.4 % (3.8-10.2); PLATELET COUNT 191 10^3/uL (134-434); RBC 3.16 M/mm3 (3.60-5.2); RDW 14.2 % (11.6-15.6); WHITE BLOOD COUNT 17.4 K/mm3 (4.0-10.0)
[2022-05-20] MEDS: ACETAMINOPHEN 325 MG TABLET (FP) PO PRN (17:46)
[2022-05-20] MEDS ORDERED: SENNOSIDES/DOCUSATE COMBO (SENNA PLUS) TABLET (UD) PO PRN (22:00)
[2022-05-21] MEDS: IBUPROFEN 600 MG TABLET (FP) PO PRN (06:13)
[2022-05-21] MEDS: FERROUS SO4 325 MG TABLET (FP) PO SCH ×3 (09:02→17:26)
[2022-05-21] MEDS: PRENATAL VITAMINS W/ FOLIC ACID TABLET (FP) PO SCH (09:06)
[2022-05-21] MEDS ORDERED: LABETALOL HCL 200 MG TABLET (FP) PO STA (10:01)
[2022-05-21] MEDS: ACETAMINOPHEN 325 MG TABLET (FP) PO PRN (11:39)
[2022-05-21 15:24] VITALS: BP 126/89; PULSE 87; RESP 18; TEMP 98.6
== END 2022-05-21 17:30 | disposition home or self-care (01) | DRG 560 ==
LOC: JDEL 10:45 → JLDR 14:35 → J3W 20:32
PROVIDERS: ADMIT Obstetrics & Gynecology; ATTEND Obstetrics & Gynecology
PROC: 0KQM0ZZ Repair Perineum Muscle, Open Approach (ICD-10-PCS; principal; 2022-05-19)
PROC: 10E0XZZ Delivery of Products of Conception, External Approach (ICD-10-PCS; 2022-05-19)
DX: O70.1 Second degree perineal laceration during delivery (principal); Z3A.37 37 weeks gestation of pregnancy; Z37.0 Single live birth
CPT/HCPCS: 36415; 59409; 80048; 85025; 85610; 85730; 86780; 86850; 86900; 86901; C9803-CS; U0003; U0005

== ENCOUNTER 2024-08-25 07:35 | Inpatient (IN) | payer OTHER ==
[2024-08-25] MEDS: PROMETHAZINE HCL 25 MG/1 ML VIAL IVPB ONE (08:30)
[2024-08-25] MEDS ORDERED: BUTORPHANOL TARTRATE 1 MG/ML VIAL IVPB PRN (08:30)
[2024-08-25] MEDS ORDERED: oxyCODONE HCL 5 MG TABLET PO PRN (08:32)
[2024-08-25] MEDS ORDERED: ACETAMINOPHEN 325 MG TABLET (FP) PO PRN (08:32)
[2024-08-25] MEDS ORDERED: METHYLERGONOVINE MALEATE 0.2 MG/1 ML AMP IM PRN (08:32)
[2024-08-25] MEDS ORDERED: BISACODYL 10 MG SUPP.RECT RC PRN (08:32)
[2024-08-25 08:50] VITALS: BMI 34.0
[2024-08-25] MEDS ORDERED: OXYTOCIN 20 UNITS in 0.9% NS 20 UNIT/1,000 ML INFUS.BAG IV ONE ×2 (08:56→10:34)
[2024-08-25] MEDS: ELECTROLYTE-148 SOLN 1,000 ML IV SCH (09:30)
[2024-08-25 10:26] LABS: CORD BASE EXCESS -2.9 mmol/L (0-2); CORD HCO3 21.1 mmHg (20-29); CORD PCO2 35.2 mmHg (30-78); CORD pH 7.396 (7.14-7.44)
[2024-08-25 10:28] LABS: CORD BASE EXCESS -4.8 mmol/L (0-2); CORD HCO3 21.7 mmHg (20-29); CORD PCO2 45.6 mmHg (30-78); CORD pH 7.296 (7.14-7.44)
[2024-08-25 10:49] LABS: HEMATOCRIT 30.3 % (32.4-45.2); HEMOGLOBIN 9.7 GM/dL (10.7-15.3); MCH 25.2 pg (25.7-33.7); MCHC 31.8 g/dl (32.0-36.0); MEAN CELL VOLUME 79.3 fl (80-96); MEAN PLT VOLUME 9.4 fl (7.5-11.1); PLATELET COUNT 280 10^3/uL (134-434); RBC 3.83 M/mm3 (3.60-5.2); RDW 16.5 % (11.6-15.6); WHITE BLOOD COUNT 18.4 K/mm3 (4.0-10.0)
[2024-08-25 11:08] LABS: INR 0.93 (0.83-1.09); PROTHROMBIN TIME (PATIENT) 10.5 SEC (9.7-13.0)
[2024-08-25 11:11] LABS: ACTIVATED PTT 25.5 SECONDS (25.2-36.5)
[2024-08-25 11:29] LABS: POTASSIUM 3.9 mmol/L (3.5-5.1)
[2024-08-25 11:30] LABS: CALCIUM 8.4 mg/dL (8.5-10.1)
[2024-08-25 11:31] LABS: BLOOD UREA NITROGEN 7.5 mg/dL (7-18)
[2024-08-25 11:34] LABS: CREATININE 0.6 mg/dL (0.55-1.3)
[2024-08-25 12:01] LABS: ANISOCYTOSIS 1+; MACROCYTOSIS 0
[2024-08-25] MEDS: PRENATAL VITAMINS W/ FOLIC ACID TABLET (FP) PO SCH (12:24)
[2024-08-25] MEDS: FERROUS SO4 325 MG TABLET (FP) PO SCH (12:24)
[2024-08-25] MEDS: OXYTOCIN 20 UNITS in 0.9% NS 20 UNIT/1,000 ML INFUS.BAG IV SCH (12:25)
[2024-08-25] MEDS: IBUPROFEN 600 MG TABLET (FP) PO PRN (12:25)
[2024-08-25] MEDS: BENZOCAINE 20% 57 GM BOTTLE TP PRN (12:26)
[2024-08-25] MEDS: WITCH HAZEL 50% (TUCKS) 40 PAD/JAR PAD TP PRN (12:26)
[2024-08-25 12:56] LABS: HIV INTERPRETATION NEGATIVE (NEGATIVE)
[2024-08-25] MEDS: BENZOCAINE 28 GM HEMORRHOIDAL OINTMENT TP PRN (16:19)
[2024-08-26 07:13] LABS: BASO % 0.5 % (0-2.0); EOS % 1.2 % (0-4.5); HEMATOCRIT 26.9 % (32.4-45.2); HEMOGLOBIN 8.2 GM/dL (10.7-15.3); LYMPH % 13.6 % (8-40); MCH 24.4 pg (25.7-33.7); MCHC 30.4 g/dl (32.0-36.0); MEAN CELL VOLUME 80.1 fl (80-96); MEAN PLT VOLUME 9.8 fl (7.5-11.1); MONO % 4.6 % (3.8-10.2); NEUT % 80.1 % (42.8-82.8); PLATELET COUNT 264 10^3/uL (134-434); RBC 3.36 M/mm3 (3.60-5.2); RDW 16.3 % (11.6-15.6); WHITE BLOOD COUNT 13.6 K/mm3 (4.0-10.0)
[2024-08-26] MEDS: SENNOSIDES/DOCUSATE COMBO (SENNA PLUS) TABLET (UD) PO PRN (20:55)
[2024-08-27 09:05] VITALS: BP 142/87; PULSE 92; RESP 16; TEMP 97.3
== END 2024-08-27 13:20 | disposition home or self-care (01) | DRG 560 ==
LOC: JLDR 07:35 → J3W 12:00
PROVIDERS: ADMIT Obstetrics & Gynecology; ATTEND Obstetrics & Gynecology
PROC: 10E0XZZ Delivery of Products of Conception, External Approach (ICD-10-PCS; principal; 2024-08-25)
PROC: 0HQ9XZZ Repair Perineum Skin, External Approach (ICD-10-PCS; 2024-08-25)
DX: O70.0 First degree perineal laceration during delivery (principal); Z3A.38 38 weeks gestation of pregnancy; Z37.0 Single live birth
CPT/HCPCS: 36415; 36600; 59409; 80048; 82803; 85025; 85610; 85730; 86780; 86803; 86850; 86900; 86901; 87389